=== PATIENT | male | born 1980 | race Caucasian/White ===

== ENCOUNTER 2018-10-30 11:03 | Inpatient (IN) | payer OTHER ==
[~2018-10-30] VITALS: Ht 185.4 cm; Wt 91.9 kg
[~2018-10-30 11:03] MED LIST: ATEN25 PO; Budeprion Xl300 MG PO; Klonopin1 MG PO; OXYC1TAB11 PO; PARO20 PO; WELLBUTRIN
[2018-10-30] MEDS ORDERED: METO25 PO (11:39)
[2018-10-30 11:49] LABS: BASOPHILS ABSOLUTE AUTO 0.02 K/mm3 (0.00-0.23); BASOPHILS PERCENT AUTO 0 % (0-2); EOSINOPHILS PERCENT AUTO 0 % (0-6); Hematocrit 50.6 % (37.0-53.0); Hemoglobin 18.7 g/dL (13.5-17.5); IMMATURE GRAN ABSOLUTE AUTO 0.03 K/mm3 (0.00-0.10); IMMATURE GRAN PERCENT AUTO 0 % (0-1); LYMPHOCYTES ABSOLUTE AUTO 0.97 K/mm3 (0.84-5.20); LYMPHOCYTES PERCENT AUTO 11 % (21-46); MONOCYTES ABSOLUTE AUTO 0.56 K/mm3 (0.16-1.47); MONOCYTES PERCENT AUTO 7 % (4-13); Mean Corpuscular HGB 32.9 pg (26.0-34.0); Mean Corpuscular Volume 89 fL (80-100); NEUTROPHILS PERCENT AUTO 81 % (41-73); Platelet Count 241 K/mm3 (150-400); RDW Coefficient Variation 14.3 % (11.7-14.2); RDW Standard Deviation 47.4 fL (35.1-46.3); Red Blood Cell Count 5.68 M/mm3 (4.30-5.90); White Blood Cell Count 8.48 K/mm3 (4.00-11.30)
[2018-10-30 12:01] LABS: Alanine Aminotransfer (ALT/SGP 111 U/L (12-78); Albumin, Blood 4.4 g/dL (3.4-5.0); Albumin/Globulin Ratio 1.2 (0.8-1.8); Alk Phos 91 U/L (50-136); Anion Gap 22 mmol/L (6-16); Aspartate Aminotrans (AST/SGOT 109 U/L (12-37); Bilirubin, Total 1.2 mg/dL (0.1-1.0); Blood Urea Nitrogen 8 mg/dL (8-24); Bun/Creatinine Ratio 9.4 (12.0-20.0); CO2, Blood 29 mmol/L (21-32); Calcium, Blood 10.1 mg/dL (8.5-10.1); Chloride, Blood 79 mmol/L (98-108); Creatinine, Blood 0.85 mg/dL (0.60-1.20); Globulin, Blood 3.6 g/dL (2.2-4.0); Glomerular Filtration Rate >60 (60-); Glucose, Blood 130 mg/dL (70-99); Potassium, Blood 2.8 mmol/L (3.5-5.5); Sodium, Blood 130 mmol/L (136-145); Troponin I <0.015 ng/mL (0.000-0.040)
[2018-10-30] MEDS ORDERED: TRAZ100 PO (12:55)
[2018-10-30] MEDS ORDERED: HYDHCL25 PO (12:56)
[2018-10-30] MEDS ORDERED: LAMICTAL XR200 MG PO (12:59)
--- NOTE | 2018-10-30 15:56 | NUR ---
ADMIT: PT ADMITTED TO ICU 5. PT ALERT AND ORIENTED, TREMULOUS. PT GAZING AROUND ROOM LIKE HE IS SEEING THINGS BUT HE DENIES HAVING ANY HALLUCINATIONS. PT NAUSEATED AND RETCHED TWICE. SPOKE WITH DR. RIOS ABOUT ANTIEMETIC BUT PT HAD PROLONGED QT IN ED SO RISK IS TOO GREAT. HELD PT'S LIBRIUM D/T NAUSEA AND GAVE ATIVAN INSTEAD. PT STATED SOME IMPROVEMENT FROM ATIVAN. CONTINUE TO MONITOR. PT'S MOTHER AND FATHER AT THE BEDSIDE.
--- NOTE | 2018-10-30 17:33 | NUR ---
SHIFT SUMMARY: PT HAS BEEN RESTING IN BED SINCE ADMIT. HE DANGLED AT THE BEDSIDE TO VOID ONCE. GLORIA WAS 13 UPON ADMIT AND RECEIVED ATIVAN, WHICH HAS HELPED WITH HIS SYMPTOMS. NO MORE RETCHING SINCE HE WAS FIRST ADMITTED AND HE WAS ABLE TO EAT SOME OFF OF HIS DINNER TRAY. HE DENIES ANY CURRENT CHEST PAIN. PT'S MOTHER HAS BEEN AT THE BEDSIDE SINCE ADMIT. SEIZURE PADS ON THE BED. CONTINUING TO MONITOR.
[2018-10-30 18:17] LABS: BASOPHILS ABSOLUTE AUTO 0.04 K/mm3 (0.00-0.23); BASOPHILS PERCENT AUTO 0 % (0-2); EOSINOPHILS PERCENT AUTO 0 % (0-6); Hematocrit 43.6 % (37.0-53.0); Hemoglobin 15.6 g/dL (13.5-17.5); IMMATURE GRAN ABSOLUTE AUTO 0.05 K/mm3 (0.00-0.10); IMMATURE GRAN PERCENT AUTO 0 % (0-1); LYMPHOCYTES ABSOLUTE AUTO 1.12 K/mm3 (0.84-5.20); LYMPHOCYTES PERCENT AUTO 8 % (21-46); MONOCYTES ABSOLUTE AUTO 0.84 K/mm3 (0.16-1.47); MONOCYTES PERCENT AUTO 6 % (4-13); Mean Corpuscular HGB 32.7 pg (26.0-34.0); Mean Corpuscular HGB Conc 35.8 g/dL (31.5-36.5); Mean Corpuscular Volume 91 fL (80-100); Mean Platelet Volume 9.7 fL (9.1-12.4); NEUTROPHILS ABSOLUTE AUTO 12.51 K/mm3 (1.96-9.15); NEUTROPHILS PERCENT AUTO 86 % (41-73); Platelet Count 191 K/mm3 (150-400); RDW Coefficient Variation 14.7 % (11.7-14.2); RDW Standard Deviation 49.5 fL (35.1-46.3); Red Blood Cell Count 4.77 M/mm3 (4.30-5.90); White Blood Cell Count 14.56 K/mm3 (4.00-11.30)
--- NOTE | 2018-10-30 20:28 | NUR ---
NIGHTSHIFT ASSUMED CARE OF PT APPROX. 1900. PT A&O X4. ASSESSMENT COMPLETED. VITAL SIGNS STABLE. HEART RHYTHM SINUS TACHYCARDIA IN 100'S AT THIS TIME. PT REPORTS FEELING "BETTER THAN BEFORE". BUT DOES REPORT THAT HIS HEAD FEELS SLIGHTLY "WEIRD, MURIEL DIZZY LIKE". TREMORS OF EXTREMITIES NOTED. CIWA SCORE 10 AT THIS TIME. PT DENIES N/V OR PAIN. BED IN LOW POSITION, CALL LIGHT IN REACH AND PT DENIES ANY NEEDS AT THIS TIME.
[2018-10-31 03:39] LABS: Alanine Aminotransfer (ALT/SGP 84 U/L (12-78); Albumin, Blood 3.6 g/dL (3.4-5.0); Albumin/Globulin Ratio 1.2 (0.8-1.8); Alk Phos 76 U/L (50-136); Aspartate Aminotrans (AST/SGOT 67 U/L (12-37); Bilirubin, Direct 0.5 mg/dL (0.0-0.3); Bilirubin, Indirect 0.9 mg/dL (0.1-0.7); Bilirubin, Total 1.4 mg/dL (0.1-1.0); Blood Urea Nitrogen 7 mg/dL (8-24); CO2, Blood 36 mmol/L (21-32); Calcium, Blood 8.9 mg/dL (8.5-10.1); Chloride, Blood 90 mmol/L (98-108); Creatinine, Blood 0.87 mg/dL (0.60-1.20); Glomerular Filtration Rate >60 (60-); Glucose, Blood 98 mg/dL (70-99); Magnesium, Blood 2.3 mg/dL (1.6-2.4); Phosphorus, Blood 4.4 mg/dL (2.5-4.9); Potassium, Blood 3.1 mmol/L (3.5-5.5); Total Protein, Blood 6.6 g/dL (6.4-8.2)
[2018-10-31 03:42] LABS: Anion Gap 8 mmol/L (6-16); Sodium, Blood 134 mmol/L (136-145)
--- NOTE | 2018-10-31 05:38 | NUR ---
SHIFT SUMMARY PT PLEASANT, COOPERATIVE AND USES CALL LIGHT APPROPRIATELY. PT REMAINS A&O X4. ALTHOUGH, PT TOOK A MINUTE TO ORIENT AFTER BEING AWOKEN FROM SLEEPING. BUT WAS ABLE TO ORIENT SELF EACH TIME. CIWA SCORE RANGED FROM 8-10. PRN MEDICATIONS GIVEN PER EMAR. PT WAS ABLE TO REST MOST OF SHIFT. MADE USE OF URINAL NEEDED. PT DENIED HALLUCINATIONS, N/V THROUGHOUT SHIFT. PT FOLLOWS DIRECTIONS AND MAINTAINED GOOD ATTENTION. ALL ASSESSMENT FINDINGS REMAIN UNCHANGED. EKG COMPLETED THIS MORNING. BED IN LOW POSITION, CALL LIGHT IN REACH AND PT DENIES ANY NEEDS. WILL CONTINUE TO MONITOR UNTIL HANDOFF TO DAYSHIFT RN.
--- NOTE | 2018-10-31 07:03 | NUR ---
ASSUMED CARE OF PT. PT IS ALERT AND ORIENTED. COMPLAINTS OF EPIGASTRIC PAIN 4/10 WITH SLIGHT NAUSEA CIWA SCORE IS 10.
--- NOTE | 2018-10-31 09:57 | NUR ---
Pt has stated that he's starting to get more and more anxious. He has expressed that he has been depressed for quite sometime but no suicidal thoughts. He has stated he wanted to be able to "do something." He stated that he has some type of social fear. He has stated that he has taken clonazepam in the past to help with his anxiety but this was stopped by his psychiatrist since he was also drinking alcohol. He stated that the medication was stopped "cold turkey" He also stated that since he had taken clonazepam he was able to go to work and has more of a drive to do any kind of activity.
[2018-10-31 13:39] LABS: BASOPHILS ABSOLUTE AUTO 0.03 K/mm3 (0.00-0.23); BASOPHILS PERCENT AUTO 1 % (0-2); EOSINOPHILS ABSOLUTE AUTO 0.01 K/mm3 (0.00-0.68); EOSINOPHILS PERCENT AUTO 0 % (0-6); Hemoglobin 15.1 g/dL (13.5-17.5); IMMATURE GRAN ABSOLUTE AUTO 0.03 K/mm3 (0.00-0.10); IMMATURE GRAN PERCENT AUTO 1 % (0-1); LYMPHOCYTES ABSOLUTE AUTO 1.13 K/mm3 (0.84-5.20); LYMPHOCYTES PERCENT AUTO 18 % (21-46); MONOCYTES ABSOLUTE AUTO 0.44 K/mm3 (0.16-1.47); MONOCYTES PERCENT AUTO 7 % (4-13); Mean Corpuscular HGB 32.7 pg (26.0-34.0); Mean Corpuscular HGB Conc 34.3 g/dL (31.5-36.5); Mean Platelet Volume 10.1 fL (9.1-12.4); NEUTROPHILS ABSOLUTE AUTO 4.67 K/mm3 (1.96-9.15); NEUTROPHILS PERCENT AUTO 74 % (41-73); Platelet Count 155 K/mm3 (150-400); RDW Coefficient Variation 15.1 % (11.7-14.2); RDW Standard Deviation 53.3 fL (35.1-46.3); Red Blood Cell Count 4.62 M/mm3 (4.30-5.90); White Blood Cell Count 6.31 K/mm3 (4.00-11.30)
[2018-10-31 13:42] LABS: Mean Corpuscular Volume 95 fL (80-100)
--- NOTE | 2018-10-31 19:30 | NUR ---
SHIFT SUMMARY: PT IS ALERT AND ORIENTED. CIWA 10-14. PT IS GETTING ATIVAN AND LIBRIUM ALTERNATELY.
--- NOTE | 2018-10-31 22:52 | NUR ---
ASSUMPTION OF CARE: Assumed care of pt at 1900. At 1900 pt lying in bed watching television. VSS, denies any needs at this time. Call light within reach, educated pt on use of call light. At approx 2030 pt sts feeling anxious, ativan PRN provided. Upon assessment at approx 2100 pt alert and orientated, pt attempting to get out of bed to take medications brought from home. Informed pt on the process of home medication administration and the need to send meds to pharmacy for verification. Pt became anxious and sts he just wants to go home. Discussed with pt concerns of leaving and why pt wanted to go home. Pt up to chair, sts that maybe getting out of bed will help. Pt starts crying, sts he was at one time restrained to bed. Informed pt that restraints are only used in cases where safety is a major concern and they are not indicated at this time. Pt becomes agreeable to taking medications to help with ETOH withdrawal and anxiety, gets back into bed. Peripheral IV x2 patent and intact.
--- NOTE | 2018-11-01 01:38 | NUR ---
OUT OF BED/CALL LIGHT USE Pt out of bed to use BSC several times this shift, not using call light. Pt re-educated energy conservation technician light usage for assistance when out of bed. Pt has steady gait and is alert and oriented.
[2018-11-01 06:22] LABS: Anion Gap 8 mmol/L (6-16); Blood Urea Nitrogen 8 mg/dL (8-24); Bun/Creatinine Ratio 9.8 (12.0-20.0); CO2, Blood 31 mmol/L (21-32); Calcium, Blood 8.6 mg/dL (8.5-10.1); Chloride, Blood 98 mmol/L (98-108); Creatinine, Blood 0.81 mg/dL (0.60-1.20); Glomerular Filtration Rate >60 (60-); Glucose, Blood 102 mg/dL (70-99); Magnesium, Blood 2.5 mg/dL (1.6-2.4); Phosphorus, Blood 2.2 mg/dL (2.5-4.9); Potassium, Blood 2.8 mmol/L (3.5-5.5); Sodium, Blood 137 mmol/L (136-145)
--- NOTE | 2018-11-01 06:35 | NUR ---
SHIFT SUMMARY: Pt slept very little throughout night, remains alert and oriented, remains calm and cooperative with staff but slightly agitated at times and wanting to leave facility/leave AMA. Nursing staff able to redirect pt, PRN ativan and Librium given with good effect noted. Continues to get out of bed without assistance, sometimes uses call light and makes needs known. VSS. Voiding using urinal, tolerating PO intake.
--- NOTE | 2018-11-01 11:15 | NUR ---
0700-ASSUMED CARE OF PT. PT IS ALERT AND ORIENTED. PT IS SLIGHTLY ANXIOUS AT THIS TIME. TRYING TO GET OUT OF BED WITHOUT ANY HELP AND NOT USING THE CALL LIGHT DESPITE BEING TOLD TO USE IT EVERY TIME HE FEELS OF GOING TO THE BATHROOM OR WANTS TO GET OUT OF BED. 0800-SEEN BY DR. RIOS AT THIS TIME. SPOKE TO DR. VENEGAS REGARDING PSYCH CONSULT. 0930-PT PULLED HIS IV. REMINDED PT AGAIN TO CALL AND USE HIS CALL LIGHT WHEN NEEDING SOMETHING.
--- NOTE | 2018-11-01 13:16 | NUR ---
1000-PT HAS EXPRESSED AGAIN HE WANTED TO GO HOME. REMINDED HIM THAT IF HE'S GOING HOME HE WILL GO HOME AGAINST MEDICAL ADVICE. 1124-CIWA SCORE 10. PT HAS BEEN PULLING HIS IV, TAKING HIS MONITOR LEADS OFF. STATING HE WANTS TO GO HOME. 1225-PT MEDICATED AGAIN WITH ATIVAN FOR ETOH WITHDRAWAL. 1309-PT HAS PULLED HIS IV THE 3RD TIME. PULLED HIS LEADS AND WAS DRESSED UP READY TO GO HOME. HE HAS STATED HIS PARENTS ARE PICKING HIM AND "WE HAVE A PLAN." TALKED TO PATIENT ABOUT THE RISKS OF LEAVING AMA. PT IS INSISTENT OF LEAVING AMA. DR. RIOS WAS NOTIFIED PT LEAVING AMA. PT BEING IMPATIENT AND IMPULSIVE PT LEFT AT THIS TIME. TALKED TO PT'S MOTHER OF PT LEAVING AMA.
== END 2018-11-01 13:05 | disposition left against medical advice (07) | DRG 894 ==
LOC: ER 11:03 → ICUW 13:06 → ICUE 14:43
PROVIDERS: Emergency Medicine; ADMIT Internal Medicine
DX: F10.239 Alcohol dependence with withdrawal, unspecified (principal); E87.1 Hypo-osmolality and hyponatremia; E87.6 Hypokalemia; F41.9 Anxiety disorder, unspecified; R94.31 Abnormal electrocardiogram [ECG] [EKG]
CPT/HCPCS: 36415; 71045; 80048; 80053; 80076; 83690; 83735; 84100; 84132; 84484; 85025; 93005; 93010; 96361; 96365; 96366; 96375; 99285-25; C9113; G0480; J1650; J2060; J3411; J3475; J3480; J7040; J7042; J7060; J7120

== ENCOUNTER 2018-12-03 20:02 | Inpatient (IN) | payer OTHER ==
[~2018-12-03] VITALS: Ht 185.4 cm; Wt 85.7 kg
[~2018-12-03 20:02] MED LIST changes: +HYDHCL25 PO; +LAMICTAL XR200 MG PO; +METO25 PO; +TRAZ100 PO
[2018-12-03 20:28] LABS: BASOPHILS ABSOLUTE AUTO 0.09 K/mm3 (0.00-0.23); BASOPHILS PERCENT AUTO 1 % (0-2); EOSINOPHILS PERCENT AUTO 0 % (0-6); Hematocrit 48.6 % (37.0-53.0); Hemoglobin 17.2 g/dL (13.5-17.5); IMMATURE GRAN ABSOLUTE AUTO 0.03 K/mm3 (0.00-0.10); IMMATURE GRAN PERCENT AUTO 0 % (0-1); LYMPHOCYTES ABSOLUTE AUTO 0.76 K/mm3 (0.84-5.20); LYMPHOCYTES PERCENT AUTO 6 % (21-46); MONOCYTES ABSOLUTE AUTO 0.83 K/mm3 (0.16-1.47); MONOCYTES PERCENT AUTO 7 % (4-13); Mean Corpuscular HGB 34.5 pg (26.0-34.0); Mean Corpuscular HGB Conc 35.4 g/dL (31.5-36.5); Mean Corpuscular Volume 97 fL (80-100); Mean Platelet Volume 9.5 fL (9.1-12.4); NEUTROPHILS ABSOLUTE AUTO 10.59 K/mm3 (1.96-9.15); NEUTROPHILS PERCENT AUTO 86 % (41-73); Platelet Count 220 K/mm3 (150-400); RDW Coefficient Variation 13.9 % (11.7-14.2); RDW Standard Deviation 50.6 fL (35.1-46.3); Red Blood Cell Count 4.99 M/mm3 (4.30-5.90)
[2018-12-03] MEDS ORDERED: TRAZ100 PO (21:12)
[2018-12-03] MEDS ORDERED: HYDHCL25 PO (21:13)
[2018-12-03 21:14] LABS: Ethanol (Alcohol), Blood, Med <3 mg/dL; Troponin I <0.015 ng/mL (0.000-0.040)
[2018-12-03 21:16] LABS: Alanine Aminotransfer (ALT/SGP 73 U/L (12-78); Albumin, Blood 4.3 g/dL (3.4-5.0); Albumin/Globulin Ratio 1.4 (0.8-1.8); Alk Phos 79 U/L (50-136); Anion Gap 13 mmol/L (6-16); Aspartate Aminotrans (AST/SGOT 98 U/L (12-37); Bilirubin, Total 1.5 mg/dL (0.1-1.0); Blood Urea Nitrogen 11 mg/dL (8-24); Bun/Creatinine Ratio 15.4 (12.0-20.0); CO2, Blood 25 mmol/L (21-32); Calcium, Blood 8.8 mg/dL (8.5-10.1); Chloride, Blood 95 mmol/L (98-108); Creatinine, Blood 0.72 mg/dL (0.60-1.20); Glomerular Filtration Rate >60 (60-); Glucose, Blood 81 mg/dL (70-99); Potassium, Blood 3.6 mmol/L (3.5-5.5); Sodium, Blood 133 mmol/L (136-145); Total Protein, Blood 7.3 g/dL (6.4-8.2)
--- NOTE | 2018-12-03 22:25 | NUR ---
PT ARRIVES TO ROOM ICU 2 VIA [facility] FROM ER. HE IS NOTED DROWSY BUT AWAKE AND ABLE TO STATE THAT HE IS IN [facility] FOR ALCOHOL WITHDRAWAL BUT THAT HE HAD CALLED FOR AN AMBULANCE FOR CHEST PAIN AND SHORTNESS OF BREATH. HE IS UNABLE TO STATE THE DATE BUT PROVIDES NOVEMBER THE MONTH AND 2018 THE YEAR, HE STATES THAT December IS IN 1 WEEK. HE IS ABLE TO TRANSFER TO THE BED WITH STANDBY ASSIST FOR LINE MANAGEMENT, ADMITS TO FEELING SOMEWHAT DIZZY WITH DANGLING HOWEVER DECLINES TO BE TRANSFERRED FROM [place] TO BED BY STAFF. HE ADMITS TO CURRENT NAUSEA, AND PAIN TO RIGHT KIDNEY THAT HE BELIEVES IS RELATED TO DEHYDRATION AND RATES 3/10, DENIES CP/PRESSURE, DENIES SOB/DYSPNEA AT THIS TIME, DENIES ITCHING OR TINGLING, DENIES HALLUCINATIONS AT THIS TIME. HE DENIES LIGHT OR SOUND SENSITIVITY. SOME SWEAT NOTED TO FOREHEAD. HRR, SINUS TACH ON MONITOR, RATE TO 130S, HYPERTENSIVE AT THIS TIME, PULSES FULL X 4 EXTREMITIES, BRISK CAP REFILL, NO EDEMA NOTED. LUNGS CLEAR THROUGHOUT, MAINTAINING SATS, NO INCREASED WORK OF BREATHING IS NOTED, RATE WNL. NORMOACTIVE BOWEL TONES, ABD SOFT, NO GRIMACING OR GUARDING WITH PALPATION. SCATTERED BRUISING IS NOTED BILAT SHINS, PT ADMITS TO FALLING AT HOME RECENTLY. HE HAS A MARKED TREMOR WHILE AT REST. WILL ADMIN ATIVAN AND LIBRIUM FOR ELEVATED CIWA SCORES, WILL MONITOR ORIENTATION AND CIWA SCORE, MEDICATE PER ORDERS.
[2018-12-04 04:00] LABS: Alanine Aminotransfer (ALT/SGP 58 U/L (12-78); Albumin, Blood 3.4 g/dL (3.4-5.0); Albumin/Globulin Ratio 1.2 (0.8-1.8); Alk Phos 70 U/L (50-136); Anion Gap 9 mmol/L (6-16); Aspartate Aminotrans (AST/SGOT 69 U/L (12-37); Bilirubin, Total 1.5 mg/dL (0.1-1.0); Blood Urea Nitrogen 7 mg/dL (8-24); Bun/Creatinine Ratio 10.4 (12.0-20.0); CO2, Blood 29 mmol/L (21-32); Chloride, Blood 102 mmol/L (98-108); Creatinine, Blood 0.67 mg/dL (0.60-1.20); Globulin, Blood 2.9 g/dL (2.2-4.0); Glomerular Filtration Rate >60 (60-); Glucose, Blood 87 mg/dL (70-99); Potassium, Blood 3.1 mmol/L (3.5-5.5); Sodium, Blood 140 mmol/L (136-145); Total Protein, Blood 6.3 g/dL (6.4-8.2)
--- NOTE | 2018-12-04 06:40 | NUR ---
PT RESTS QUIETLY AFTER ADMISSION THIS SHIFT. NAUSEA IMPROVES WITH ATIVAN ADMINISTRATION ALTHOUGH DOES NOT COMPLETELY RESOLVE. PT TREMORS IMPROVE WITH ATIVAN AND LIBRIUM, CIWA SCORES RANGE FROM 7-18 SINCE ADMISSION. HE CONTINUES TO BE ABLE TO STATE THAT HE IS IN [facility], IN 2019 AND IS AWARE OF UPCOMING HOLIDAY HOWEVER CANNOT STATE EXACT DATE. PRESSURES AND HEART RATE IMPROVED FOLLOWING ATIVAN 2 MG IV X 2 DOSES AND LIBRIUM 50 MG AND 25 MG DOSES. WILL CONTINUE TO MONITOR AND REPORT TO ONCOMING RN
--- NOTE | 2018-12-04 07:40 | NUR ---
ASSUMED CARE: REPORT RECEIVED FROM MESERET Bright RN. ASSUMED CARE OF THIS PT AT APPROX 0700. ON ASSESSMENT, THE PT IS RESTING QUIETLY. HE AWAKENS EASILY TO VERBAL STIMULUS & IS FOLLOWING DIRECTION WELL AT THIS TIME. CIWA CHARTED. HIS MOTHER IS AT BEDSIDE & SUPPORTIVE W/ CARE MEASURES. THE PT HAS NO C/O PAIN AT THIS TIME. WOLFGANG, TACK WELDER, AT BEDSIDE CURRENTLY TO COMPLETE ECHOCARDIOGRAM ORDERED. WILL CONTINUE TO MONITOR & UPDATE NEEDED.
--- NOTE | 2018-12-04 09:44 | NUR ---
echocardiogram completed
--- NOTE | 2018-12-04 19:03 | NUR ---
SHIFT SUMMARY: NO ACUTE CHANGES THIS SHIFT. PT A&Ox4, UNSURE OF EXACT DATE. CIWA HAS RANGED FROM 11-17 THIS SHIFT, MEDS PER EMAR FOR ETOH W/D. FAMILY HAS BEEN ENCOURAGED TO KEEP CONVERSATION SIMPLE PT BECOMES STRESSED/ANXIOUS EASILY. LS ARE CLEAR T/O, PT ON RA W/ O2 SATS > 92%. MONITOR SHOWS NSR W/ HR 80-100, HTN AT TIMES OF INCREASED ANXIETY, MEDS FOR ANXIETY RESOLVE THIS. BTx4, PT STS IMPROVEMENT TO INTERMITTENT NAUSEA. VOIDING W/O DIFFICULTY USING URINAL, URINE IS DARK & PO FLUIDS ENCOURAGED. SKIN OVERALL CDI. WILL CONTINUE TO MONITOR & REPORT OFF TO ONCOMING RN.
--- NOTE | 2018-12-04 20:00 | NUR ---
ASSUMED CARE OF PT AT 1915. REPORT RECEIVED. PT PRESENTS IN BED. SLOW VERBAL RESPONSES. BECOMES UPSET DURING ASSESSMENT SECONDARY TO BEING ASKED NOT TO SPEAK WHILE IN AUSCULTATION OF LUNGS AND HEART SOUNDS. 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 PT THREATENS THAT HE IS GOING TO LEAVE "AMA" HE DID THE PREVIOUS TIMES. ALLOWED PT TO EXPRESS HIS FRUSTRATIONS, AND CONCERNS THAT ARE LEADING TO HIM WANTING TO GO AMA. PT VOICES HE IS NOT SURE WHY HIS NORMAL HOME MEDICATIONS NEVER GOT REORDERED. INSTRCUTED PT THAT AFTER REVIEWING CHART AND MD NOTES THAT A BETTER EXPLANATION WOULD BE POSSIBLE FOR HIM. ALSO THAT AFTERWARDS, IF NEED BE, A CALL TO PROVIDER COULD BE MADE OR WOULD SPEAK WITH MORNING HOSPITALIST TEAM. THIS DID SATISFY PT. WILL REVIEW CHART AND PLAN OF CARE FOR THIS PT.
--- NOTE | 2018-12-04 21:37 | NUR ---
SPOKE WITH PATIENT REGARDING LEAVING AMA PATIENT VERY CLEAR ON REASONING FOR LEAVING AMA AND AWARE OF NOT BEING ABLE TO RECEIVE RX FOR ANY MEDICATIONS TO ASSIST WITH DT'S FROM ALCOHOL WITHDRAW. PATIENT HAS ARRANGED RIDE HOME. PATIENT ENCOURAGED TO FIND SOME PROFESSIONAL HELP TO DISCUSS HIS PROBLEMS AND FEARS.
--- NOTE | 2018-12-04 21:45 | NUR ---
PT MAKES A PHONE CALL TO SOMEONE AND DISCUSSED THAT HE WAS GOING TO "CHECK HIMSELF OUT OF THE HOSPITAL" HE THEN PROCEDES TO PULL OUT HIS IV AND STATES HE IS GOING TO GO HOME. PT ABLE TO EXPRESS APPROPRIATELY HIS RATIONALE FOR LEAVING AND DEMONSTRATES THAT HE HAS BEEN PLANNING TO DO THIS THIS EVENING. [facility] WITH NO SUCCESS IN SWAYING HIS DECISION. PT STATES HE HAS ARRANGED FOR A RIDE TO PICK HIM UP OUTSIDE OF THE HOSPITAL. PT LEAVES UNIT AFTER SECOND IV REMOVED BY THIS RN. TIME OF DEPARTURE WAS 2143.
== END 2018-12-04 21:44 | disposition left against medical advice (07) | DRG 894 ==
LOC: ER 20:02 → ICUE 21:34 → ICUW 21:34 → ICUE 22:25
PROVIDERS: Emergency Medicine; ADMIT Hospitalist
DX: F10.231 Alcohol dependence with withdrawal delirium (principal); E87.1 Hypo-osmolality and hyponatremia; F41.8 Other specified anxiety disorders; I10 Essential (primary) hypertension; F17.210 Nicotine dependence, cigarettes, uncomplicated; E83.42 Hypomagnesemia; E87.6 Hypokalemia
CPT/HCPCS: 36415; 71045; 80053; 83735; 84100; 84443; 84484; 85025; 93005; 93010; 93306; 96365; 96375; 99285-25; C9113; G0480; J1650; J2060; J2405; J3411; J3475; J3480; J7030; J7042

== ENCOUNTER 2019-01-06 11:32 | Observation (INO) | payer OTHER ==
[~2019-01-06] VITALS: Ht 182.9 cm; Wt 99.8 kg
[2019-01-06 13:10] LABS: BASOPHILS ABSOLUTE AUTO 0.08 K/mm3 (0.00-0.23); BASOPHILS PERCENT AUTO 1 % (0-2); EOSINOPHILS ABSOLUTE AUTO 0.04 K/mm3 (0.00-0.68); EOSINOPHILS PERCENT AUTO 1 % (0-6); Hematocrit 48.7 % (37.0-53.0); Hemoglobin 16.4 g/dL (13.5-17.5); IMMATURE GRAN ABSOLUTE AUTO 0.02 K/mm3 (0.00-0.10); IMMATURE GRAN PERCENT AUTO 0 % (0-1); LYMPHOCYTES ABSOLUTE AUTO 1.44 K/mm3 (0.84-5.20); LYMPHOCYTES PERCENT AUTO 25 % (21-46); MONOCYTES ABSOLUTE AUTO 0.81 K/mm3 (0.16-1.47); MONOCYTES PERCENT AUTO 14 % (4-13); Mean Corpuscular HGB Conc 33.7 g/dL (31.5-36.5); Mean Corpuscular Volume 101 fL (80-100); Mean Platelet Volume 9.9 fL (9.1-12.4); NEUTROPHILS ABSOLUTE AUTO 3.44 K/mm3 (1.96-9.15); NEUTROPHILS PERCENT AUTO 59 % (41-73); Platelet Count 202 K/mm3 (150-400); RDW Coefficient Variation 13.9 % (11.7-14.2); RDW Standard Deviation 52.3 fL (35.1-46.3); Red Blood Cell Count 4.83 M/mm3 (4.30-5.90); White Blood Cell Count 5.83 K/mm3 (4.00-11.30)
[2019-01-06 13:19] LABS: Source, Urine Voided
[2019-01-06 13:34] LABS: Salicylate <1.7 mg/dL (2.8-20.0)
[2019-01-06 13:43] LABS: Bilirubin, Urine Neg (Neg); Blood, Urine Neg (Neg); Glucose Qualitative, Urine Neg (Neg); Ketones, Urine Neg (Neg); Leukocyte Esterase, Urine Neg (Neg); Nitrite, Urine Neg (Neg); Protein, Urine Neg (Neg); Urobilinogen, Urine NORM (Normal)
[2019-01-06 13:49] LABS: Appearance, Urine Clear (Clear); Color, Urine Pale Yellow (P-Yellow)
[2019-01-06 13:57] LABS: Acetaminophen, Random <2.0 ug/mL (10.0-30.0); Alanine Aminotransfer (ALT/SGP 93 U/L (12-78); Albumin/Globulin Ratio 1.2 (0.8-1.8); Alk Phos 85 U/L (50-136); Anion Gap 13 mmol/L (6-16); Aspartate Aminotrans (AST/SGOT 118 U/L (12-37); Bilirubin, Total 0.5 mg/dL (0.1-1.0); Blood Urea Nitrogen 10 mg/dL (8-24); Bun/Creatinine Ratio 12.8 (12.0-20.0); CO2, Blood 21 mmol/L (21-32); Calcium, Blood 8.4 mg/dL (8.5-10.1); Chloride, Blood 107 mmol/L (98-108); Creatinine, Blood 0.78 mg/dL (0.60-1.20); Ethanol (Alcohol), Blood, Med 316 mg/dL; Globulin, Blood 3.4 g/dL (2.2-4.0); Glomerular Filtration Rate >60 (60-); Glucose, Blood 108 mg/dL (70-99); Sodium, Blood 141 mmol/L (136-145); Total Protein, Blood 7.4 g/dL (6.4-8.2)
[2019-01-06 13:59] LABS: U Amphetamine Screen Not Detected; U Barbituate Screen Not Detected; U Benzodiazapine Screen Not Detected; U Buprenorphine Screen Not Detected; U Cannabinoids Screen DETECTED; U Cocaine Screen Not Detected; U Methadone Screen Not Detected; U Methamphetamine Screen Not Detected; U Opiates Screen Not Detected; U Oxycodone Screen Not Detected; U Phencyclidine Screen Not Detected; U Propoxyphene Screen Not Detected
[2019-01-09 03:33] LABS: Alanine Aminotransfer (ALT/SGP 88 U/L (12-78); Albumin, Blood 3.7 g/dL (3.4-5.0); Albumin/Globulin Ratio 1.1 (0.8-1.8); Alk Phos 85 U/L (50-136); Anion Gap 9 mmol/L (6-16); Aspartate Aminotrans (AST/SGOT 86 U/L (12-37); Bilirubin, Total 0.6 mg/dL (0.1-1.0); Blood Urea Nitrogen 10 mg/dL (8-24); Bun/Creatinine Ratio 14.3 (12.0-20.0); CO2, Blood 26 mmol/L (21-32); Calcium, Blood 9.3 mg/dL (8.5-10.1); Chloride, Blood 106 mmol/L (98-108); Globulin, Blood 3.5 g/dL (2.2-4.0); Glomerular Filtration Rate >60 (60-); Glucose, Blood 102 mg/dL (70-99); Potassium, Blood 3.9 mmol/L (3.5-5.5); Sodium, Blood 141 mmol/L (136-145); Total Protein, Blood 7.2 g/dL (6.4-8.2)
== END 2019-01-11 08:59 | disposition home or self-care (01) ==
LOC: ER 11:32 → EOR 13:02
PROVIDERS: Emergency Medicine; ADMIT Emergency Medicine
DX: F10.14 Alcohol abuse with alcohol-induced mood disorder (principal); F32.9 Major depressive disorder, single episode, unspecified; F10.129 Alcohol abuse with intoxication, unspecified; F41.9 Anxiety disorder, unspecified; I10 Essential (primary) hypertension; F17.200 Nicotine dependence, unspecified, uncomplicated; Z79.899 Other long term (current) drug therapy
CPT/HCPCS: 36415; 71046; 80053; 81003; 84443; 85025; 96372; 99285-25; G0378; G0480; J1200; J1630; J2060; Q0163; Q3014

== ENCOUNTER 2019-01-30 19:19 | Emergency (ER) | payer OTHER ==
[~2019-01-30] VITALS: Ht 182.9 cm; Wt 90.7 kg
[2019-01-30 21:10] LABS: BASOPHILS ABSOLUTE AUTO 0.05 K/mm3 (0.00-0.23); BASOPHILS PERCENT AUTO 1 % (0-2); EOSINOPHILS ABSOLUTE AUTO 0.15 K/mm3 (0.00-0.68); EOSINOPHILS PERCENT AUTO 2 % (0-6); Hematocrit 46.5 % (37.0-53.0); Hemoglobin 15.8 g/dL (13.5-17.5); IMMATURE GRAN ABSOLUTE AUTO 0.03 K/mm3 (0.00-0.10); IMMATURE GRAN PERCENT AUTO 0 % (0-1); LYMPHOCYTES ABSOLUTE AUTO 1.29 K/mm3 (0.84-5.20); LYMPHOCYTES PERCENT AUTO 18 % (21-46); MONOCYTES ABSOLUTE AUTO 0.62 K/mm3 (0.16-1.47); MONOCYTES PERCENT AUTO 9 % (4-13); Mean Corpuscular Volume 100 fL (80-100); Mean Platelet Volume 9.5 fL (9.1-12.4); NEUTROPHILS ABSOLUTE AUTO 5.07 K/mm3 (1.96-9.15); NEUTROPHILS PERCENT AUTO 70 % (41-73); Platelet Count 301 K/mm3 (150-400); RDW Coefficient Variation 11.9 % (11.7-14.2); RDW Standard Deviation 44.3 fL (35.1-46.3); Red Blood Cell Count 4.65 M/mm3 (4.30-5.90); White Blood Cell Count 7.21 K/mm3 (4.00-11.30)
[2019-01-30 21:28] LABS: Alanine Aminotransfer (ALT/SGP 58 U/L (12-78); Albumin, Blood 3.7 g/dL (3.4-5.0); Albumin/Globulin Ratio 1.1 (0.8-1.8); Alk Phos 81 U/L (50-136); Anion Gap 6 mmol/L (6-16); Aspartate Aminotrans (AST/SGOT 40 U/L (12-37); Bilirubin, Total 0.3 mg/dL (0.1-1.0); Blood Urea Nitrogen 12 mg/dL (8-24); Bun/Creatinine Ratio 16.7 (12.0-20.0); CO2, Blood 24 mmol/L (21-32); Calcium, Blood 8.9 mg/dL (8.5-10.1); Chloride, Blood 109 mmol/L (98-108); Creatinine, Blood 0.72 mg/dL (0.60-1.20); Globulin, Blood 3.4 g/dL (2.2-4.0); Glomerular Filtration Rate >60 (60-); Glucose, Blood 88 mg/dL (70-99); Potassium, Blood 3.9 mmol/L (3.5-5.5); Sodium, Blood 139 mmol/L (136-145); Total Protein, Blood 7.1 g/dL (6.4-8.2)
[2019-01-30 21:40] LABS: Source, Urine Clean Catch
[2019-01-30 21:42] LABS: Bilirubin, Urine Neg (Neg); Blood, Urine Neg (Neg); Glucose Qualitative, Urine Neg (Neg); Ketones, Urine Neg (Neg); Leukocyte Esterase, Urine Neg (Neg); Nitrite, Urine Neg (Neg); Protein, Urine Neg (Neg); Urobilinogen, Urine NORM (Normal); pH, Urine 6.5 (5.0-8.0)
[2019-01-30 21:50] LABS: Appearance, Urine Clear (Clear); Color, Urine Yellow (P-Yellow)
[2019-01-30 21:55] LABS: U Amphetamine Screen Not Detected; U Barbituate Screen Not Detected; U Benzodiazapine Screen DETECTED; U Buprenorphine Screen Not Detected; U Cannabinoids Screen DETECTED; U Cocaine Screen Not Detected; U Methadone Screen Not Detected; U Methamphetamine Screen Not Detected; U Opiates Screen Not Detected; U Oxycodone Screen Not Detected; U Phencyclidine Screen Not Detected; U Propoxyphene Screen Not Detected
== END 2019-01-30 22:55 | disposition short-term general hospital (02) ==
LOC: ER 19:19
PROVIDERS: Emergency Medicine
DX: S72.001A Fracture of unspecified part of neck of right femur, initial encounter for closed fracture (principal); M25.462 Effusion, left knee; V00.131A Fall from skateboard, initial encounter; Z79.899 Other long term (current) drug therapy; F32.9 Major depressive disorder, single episode, unspecified; F41.9 Anxiety disorder, unspecified
CPT/HCPCS: 36415; 71045; 73502; 73562-RT; 80053; 81003; 85025; 96361; 96374; 96376; 99285-25; J1170; J7030

== ENCOUNTER → 2019-03-28 | Outpatient (CLI) | payer OTHER ==
[2019-03-28 16:55] LABS: BASOPHILS ABSOLUTE AUTO 0.07 K/mm3 (0.00-0.23); BASOPHILS PERCENT AUTO 1 % (0-2); EOSINOPHILS ABSOLUTE AUTO 0.01 K/mm3 (0.00-0.68); EOSINOPHILS PERCENT AUTO 0 % (0-6); Hematocrit 45.4 % (37.0-53.0); Hemoglobin 16.6 g/dL (13.5-17.5); IMMATURE GRAN ABSOLUTE AUTO 0.02 K/mm3 (0.00-0.10); IMMATURE GRAN PERCENT AUTO 0 % (0-1); LYMPHOCYTES ABSOLUTE AUTO 0.79 K/mm3 (0.84-5.20); LYMPHOCYTES PERCENT AUTO 9 % (21-46); MONOCYTES ABSOLUTE AUTO 0.62 K/mm3 (0.16-1.47); MONOCYTES PERCENT AUTO 7 % (4-13); Mean Corpuscular HGB 32.7 pg (26.0-34.0); Mean Corpuscular HGB Conc 36.6 g/dL (31.5-36.5); Mean Corpuscular Volume 89 fL (80-100); Mean Platelet Volume 10.1 fL (9.1-12.4); NEUTROPHILS ABSOLUTE AUTO 7.71 K/mm3 (1.96-9.15); NEUTROPHILS PERCENT AUTO 84 % (41-73); Platelet Count 227 K/mm3 (150-400); RDW Coefficient Variation 12.8 % (11.7-14.2); Red Blood Cell Count 5.08 M/mm3 (4.30-5.90); White Blood Cell Count 9.22 K/mm3 (4.00-11.30)
[2019-03-28 17:05] LABS: Alanine Aminotransfer (ALT/SGP 176 U/L (12-78); Albumin, Blood 4.2 g/dL (3.4-5.0); Albumin/Globulin Ratio 1.2 (0.8-1.8); Alk Phos 109 U/L (40-126); Anion Gap 22 mmol/L (6-16); Aspartate Aminotrans (AST/SGOT 277 U/L (12-37); Bilirubin, Total 1.4 mg/dL (0.1-1.0); Blood Urea Nitrogen 10 mg/dL (8-24); Bun/Creatinine Ratio 10.6 (12.0-20.0); Calcium, Blood 9.3 mg/dL (8.5-10.1); Chloride, Blood 91 mmol/L (98-108); Creatinine, Blood 0.94 mg/dL (0.60-1.20); Globulin, Blood 3.5 g/dL (2.2-4.0); Glomerular Filtration Rate >60 (60-); Glucose, Blood 106 mg/dL (70-99); Potassium, Blood 3.9 mmol/L (3.5-5.5); Sodium, Blood 132 mmol/L (136-145); Total Protein, Blood 7.7 g/dL (6.4-8.2)
[2019-03-28 17:13] LABS: CO2, Blood 19 mmol/L (21-32)
[2019-03-28 17:17] LABS: Troponin I <0.017 ng/mL (0.000-0.040)
== END | disposition home or self-care (01) ==
LOC: LAB EV 16:45 → LAB SHORT 16:45
PROVIDERS: Family Medicine
DX: R07.9 Chest pain, unspecified (principal)
CPT/HCPCS: 80053; 84484; 85025

== ENCOUNTER 2019-08-06 22:58 | Inpatient (IN) | payer OTHER ==
[~2019-08-06] VITALS: Ht 182.9 cm; Wt 97.3 kg
[2019-08-06 23:16] LABS: BASOPHILS ABSOLUTE AUTO 0.04 K/mm3 (0.00-0.23); BASOPHILS PERCENT AUTO 0 % (0-2); EOSINOPHILS ABSOLUTE AUTO 0.03 K/mm3 (0.00-0.68); EOSINOPHILS PERCENT AUTO 0 % (0-6); Hematocrit 49.9 % (37.0-53.0); Hemoglobin 17.3 g/dL (13.5-17.5); IMMATURE GRAN ABSOLUTE AUTO 0.13 K/mm3 (0.00-0.10); IMMATURE GRAN PERCENT AUTO 1 % (0-1); LYMPHOCYTES ABSOLUTE AUTO 1.11 K/mm3 (0.84-5.20); LYMPHOCYTES PERCENT AUTO 7 % (21-46); MONOCYTES ABSOLUTE AUTO 1.18 K/mm3 (0.16-1.47); MONOCYTES PERCENT AUTO 7 % (4-13); Mean Corpuscular HGB 32.5 pg (26.0-34.0); Mean Corpuscular HGB Conc 34.7 g/dL (31.5-36.5); Mean Corpuscular Volume 94 fL (80-100); Mean Platelet Volume 9.8 fL (9.1-12.4); NEUTROPHILS ABSOLUTE AUTO 14.53 K/mm3 (1.96-9.15); NEUTROPHILS PERCENT AUTO 85 % (41-73); Platelet Count 281 K/mm3 (150-400); RDW Coefficient Variation 13.2 % (11.7-14.2); RDW Standard Deviation 45.1 fL (35.1-46.3); Red Blood Cell Count 5.33 M/mm3 (4.30-5.90); White Blood Cell Count 17.02 K/mm3 (4.00-11.30)
[2019-08-06 23:33] LABS: Ethanol (Alcohol), Blood, Med 252 mg/dL; Salicylate 2.5 mg/dL (2.8-20.0)
[2019-08-06 23:34] LABS: Acetaminophen, Random <2.0 ug/mL (10.0-30.0); Alanine Aminotransfer (ALT/SGP 74 U/L (12-78); Albumin, Blood 4.5 g/dL (3.4-5.0); Albumin/Globulin Ratio 1.3 (0.8-1.8); Alk Phos 86 U/L (50-136); Anion Gap 41 mmol/L (6-16); Aspartate Aminotrans (AST/SGOT 61 U/L (12-37); Bilirubin, Total 0.5 mg/dL (0.1-1.0); Blood Urea Nitrogen 15 mg/dL (8-24); CO2, Blood 9 mmol/L (21-32); Calcium, Blood 8.4 mg/dL (8.5-10.1); Chloride, Blood 79 mmol/L (98-108); Creatinine, Blood 1.66 mg/dL (0.60-1.20); Globulin, Blood 3.4 g/dL (2.2-4.0); Glomerular Filtration Rate 50 (60-); Glucose, Blood 124 mg/dL (70-99); Potassium, Blood 3.4 mmol/L (3.5-5.5); Sodium, Blood 129 mmol/L (136-145); Total Protein, Blood 7.9 g/dL (6.4-8.2)
[2019-08-06 23:39] LABS: PCO2 Arterial 19 mmHg (35-45); PO2 Arterial 105 mmHg (80-100); pH Blood Arterial 7.24 (7.35-7.45)
[2019-08-07 01:22] LABS: Adenovirus Not Detected (NOT DETECT); Bordetella pertussis Not Detected (NOT DETECT); Chlamydophila pneumoniae Not Detected (NOT DETECT); Coronavirus 229E Not Detected (NOT DETECT); Coronavirus HKU1 Not Detected (NOT DETECT); Coronavirus NL63 Not Detected (NOT DETECT); Coronavirus OC43 Not Detected (NOT DETECT); Human Metapneumovirus Not Detected (NOT DETECT); Human Rhinovirus/Enterovirus Not Detected (NOT DETECT); Influenza A/2009-H1 Not Detected (NOT DETECT); Influenza A/H1 Not Detected (NOT DETECT); Influenza A/H3 Not Detected (NOT DETECT); Influenza B Not Detected (NOT DETECT); Mycoplasma pneumoniae Not Detected (NOT DETECT); Parainfluenza Virus 1 Not Detected (NOT DETECT); Parainfluenza Virus 2 Not Detected (NOT DETECT); Parainfluenza Virus 3 Not Detected (NOT DETECT); Parainfluenza Virus 4 Not Detected (NOT DETECT); Respiratory Syncytial Virus Not Detected (NOT DETECT)
[2019-08-07 01:23] LABS: Creatine Kinase MB 4.5 ng/mL (0.0-3.6); Creatine Kinase MB Index 1.3 (0.0-4.0)
--- NOTE | 2019-08-07 01:30 | NUR ---
ASSUMPTION OF CARE: PT UP TO ROOM FROM ED VIA BED. PT ALERT AND ORIENTED. ANSWERING QUESTIONS APPROPIATELY. PT'S MAIN COMPLAINT HAS BEEN THIRST AND HAS BEEN ASKING FOR WATER, MILK, JUICE. EXPLAINED TO PT HE IS NPO BUT OFFERED MOUTH SWABS. PT ON RA DURING TRANSPORT AND TRANSFER TO ICU BED. SPO2 >90%. HAS BIPAP ON STANDBY IF NEEDED. IN ST WITH HR IN THE 140S, SBP 150-170S. BT PRESENT. ABLE TO VOID ON OWN. 20 IN RFA AND LAC. BOTH PATENT AND CURRENTLY SALINE LOCKED. CURRENT CIWA 4. BED IN LOW POSITION, CALL LIGHT IN REACH, WILL CONTINUE TO MONITOR.
--- NOTE | 2019-08-07 03:47 | NUR ---
PT ON AND OFF BIPAP FOR COMFORT. HOWEVER PT SPO2 >90% ON RA. CURRENTLY RESTING COMFORTABLY BUT HAS 1 EPISODE OF ATTEMPTING TO GET OUT OF BED TO GET OWN WATER. EXPLAINED TO PT AGAIN THAT HE CAN NOT HAVE ANYTHING BY MOUTH AT THIS TIME. OFFERED MOUTH SWAB INSTEAD.
[2019-08-07 05:05] LABS: Hematocrit 49.6 % (37.0-53.0); Hemoglobin 16.1 g/dL (13.5-17.5); Mean Corpuscular HGB 31.8 pg (26.0-34.0); Mean Corpuscular HGB Conc 32.5 g/dL (31.5-36.5); Mean Platelet Volume 10.3 fL (9.1-12.4); Platelet Count 230 K/mm3 (150-400); RDW Coefficient Variation 13.5 % (11.7-14.2); RDW Standard Deviation 48.4 fL (35.1-46.3); Red Blood Cell Count 5.07 M/mm3 (4.30-5.90); White Blood Cell Count 16.66 K/mm3 (4.00-11.30)
[2019-08-07 05:10] LABS: Mean Corpuscular Volume 98 fL (80-100)
[2019-08-07 05:30] LABS: Anion Gap 42 mmol/L (6-16); Blood Urea Nitrogen 16 mg/dL (8-24); Bun/Creatinine Ratio 12.7 (12.0-20.0); CO2, Blood 5 mmol/L (21-32); Calcium, Blood 7.6 mg/dL (8.5-10.1); Chloride, Blood 83 mmol/L (98-108); Creatinine, Blood 1.26 mg/dL (0.60-1.20); Glomerular Filtration Rate >60 (60-); Glucose, Blood 121 mg/dL (70-99); Potassium, Blood 3.8 mmol/L (3.5-5.5); Sodium, Blood 130 mmol/L (136-145)
[2019-08-07 05:31] LABS: Alanine Aminotransfer (ALT/SGP 69 U/L (12-78); Albumin/Globulin Ratio 1.2 (0.8-1.8); Alk Phos 78 U/L (50-136); Anion Gap 43 mmol/L (6-16); Aspartate Aminotrans (AST/SGOT 59 U/L (12-37); Bilirubin, Total 0.5 mg/dL (0.1-1.0); Blood Urea Nitrogen 17 mg/dL (8-24); Bun/Creatinine Ratio 12.9 (12.0-20.0); CO2, Blood 5 mmol/L (21-32); Calcium, Blood 7.6 mg/dL (8.5-10.1); Chloride, Blood 83 mmol/L (98-108); Creatinine, Blood 1.32 mg/dL (0.60-1.20); Globulin, Blood 3.4 g/dL (2.2-4.0); Glomerular Filtration Rate >60 (60-); Glucose, Blood 124 mg/dL (70-99); Potassium, Blood 3.8 mmol/L (3.5-5.5); Sodium, Blood 131 mmol/L (136-145); Total Protein, Blood 7.4 g/dL (6.4-8.2)
--- NOTE | 2019-08-07 05:35 | NUR ---
PT CO2 AT 5. CALL PLACED TO SHERRY AND VM LEFT.
--- NOTE | 2019-08-07 05:54 | NUR ---
PT RESTING COMFORTABLY T/O NIGHT. HAS BEEN ON AND OFF BIPAP T/O NIGHT FOR PT COMFORT. VSS, PT REMAINS IN ST. LUNG SOUNDS CLEAR. OCC PRODUCTIVE COUGH. PT ABLE TO VOID ON OWN. URINE CLEAR YELLOW. 20G IV IN RFA ND LAC. LAC IV INFUSING WITH BICARB AT 125 ML/HR. RFA SL. WILL PASS REPORT ON TO NEXT SHIFT
[2019-08-07 06:07] LABS: Adenovirus Not Detected (NOT DETECT); Bordetella pertussis Not Detected (NOT DETECT); Chlamydophila pneumoniae Not Detected (NOT DETECT); Coronavirus 229E Not Detected (NOT DETECT); Coronavirus HKU1 Not Detected (NOT DETECT); Coronavirus NL63 Not Detected (NOT DETECT); Coronavirus OC43 Not Detected (NOT DETECT); Human Metapneumovirus Not Detected (NOT DETECT); Human Rhinovirus/Enterovirus Not Detected (NOT DETECT); Influenza A/2009-H1 Not Detected (NOT DETECT); Influenza A/H1 Not Detected (NOT DETECT); Influenza A/H3 Not Detected (NOT DETECT); Influenza B Not Detected (NOT DETECT); Mycoplasma pneumoniae Not Detected (NOT DETECT); Parainfluenza Virus 1 Not Detected (NOT DETECT); Parainfluenza Virus 2 Not Detected (NOT DETECT); Parainfluenza Virus 3 Not Detected (NOT DETECT); Parainfluenza Virus 4 Not Detected (NOT DETECT); Respiratory Syncytial Virus Not Detected (NOT DETECT)
[2019-08-07 06:33] LABS: PCO2 Arterial 19.9 mmHg (35-45); PO2 Arterial 76.1 mmHg (80-100); pH Blood Arterial 7.43 (7.35-7.45)
--- NOTE | 2019-08-07 07:30 | NUR ---
CARE OF PT ASSUMED BEDSIDE REPORT TAKEN AT 0715 THIS AM. PT SLEEPING IN BED WITH BIPAP ON. PT AROUSES TO VOICE. BP ELEVATED, HEART RATE 90-110, SINUS RHTHYM. SATS >93% BIPAP 12/5 21% FIO2.
[2019-08-07 11:46] LABS: Anion Gap 11 mmol/L (6-16); Blood Urea Nitrogen 16 mg/dL (8-24); Bun/Creatinine Ratio 16.6 (12.0-20.0); CO2, Blood 34 mmol/L (21-32); Calcium, Blood 7.4 mg/dL (8.5-10.1); Chloride, Blood 86 mmol/L (98-108); Creatinine, Blood 0.96 mg/dL (0.60-1.20); Glomerular Filtration Rate >60 (60-); Glucose, Blood 225 mg/dL (70-99); Potassium, Blood 3.4 mmol/L (3.5-5.5); Sodium, Blood 131 mmol/L (136-145)
--- NOTE | 2019-08-07 13:44 | NUR ---
PT ASSESSED AT 0745. PT ORIENTED, BUT RESTLESS, SOMEWHAT AGITATED WITH C/O SOB. STIDOR NOTED; RT NOTIFIED. COARSE T/O WITH VERY DIMINISHED SOUNDS TO RML,RLL. SATS STABLE. CIWA 16, STRONG TREMORS, PT PANICKING. PT WITH 100CC MUCUS/BILE EMESIS. PT MEDICATED W ZOFRAN. 02 PLACD AT 2L UNTIL NAUSEA CLEARED. ATIVAN GIVEN WITH GOOD EFFECT. DR CARIAS IN TO SEE PT AT 0830. CONSULT FOR CRITICAL CARE ORDERED. DR ESCOBEDO NOTIFIED AT 0900 WITH FULL UPDATE. STIDOR IMPROVED AFTER UDN TREATMENT. FLUIDS CHANGED TO D5 W 3AMPS BICARB AT 200CC/HR. PT KEPT NPO UNTIL 1200. ATIVAN GIVEN AT 1214 FOR ELEVATED CIWA' WITH GOOD EFFECT. PT CALM AND RELAXED. SLEEPIN ON AND OFF. PT REMAINS HTN; WILL MEDICATE PER EMAR. PT HAS STAYED OFF BIPAP. SATS >95% ON 2L VIA N/C. PT REMAINS COARSE WITH MILD STIDOR NOTED. PT'S MOTHER AT BEDSIDE.
--- NOTE | 2019-08-07 15:50 | NUR ---
PT SLEEPING ON AND OFF; APPEARS RELAXED, SKIN FLUSHED. AFEBRILE. SLIGHT STIDOR NOTED. SATS 97% ON 1L VIA N/C. HYDRALAZINE IV GIVEN FOR SBP >160.
[2019-08-07 17:38] LABS: Anion Gap 7 mmol/L (6-16); Blood Urea Nitrogen 12 mg/dL (8-24); Bun/Creatinine Ratio 14.6 (12.0-20.0); CO2, Blood 38 mmol/L (21-32); Calcium, Blood 7.6 mg/dL (8.5-10.1); Chloride, Blood 85 mmol/L (98-108); Creatinine, Blood 0.82 mg/dL (0.60-1.20); Glomerular Filtration Rate >60 (60-); Glucose, Blood 196 mg/dL (70-99); Potassium, Blood 2.8 mmol/L (3.5-5.5); Sodium, Blood 130 mmol/L (136-145)
--- NOTE | 2019-08-07 18:39 | NUR ---
DR ESCOBEDO AT BEDSIDE TO SEE PT. SEE NEW ORDERS. PT HAS DONE WELL T/O THE SHIFT; RESP DISTRESS HAS IMPROVED SIGNIFICANTLY. PT HAS NOT NEEDED BIPAP SINCE EARLY THIS AM. ATIVAN 2MG IVP GIVEN X3 FOR INCREASED CIWA WITH GOOD EFFECT. PT CALM AND SLEPT THROUGH MOST OF SHIFT. PT'S MOTHER AT BEDSIDE FOR MOST OF SHIFT WELL. IV FLUIDS TO BE DC'D. DIET TO BE STARTED TOLERATED. HYDRALAZINE GIVEN ONCE FOR SBP>160. PT SBA TO STAND AT BEDSIDE AND USE URINAL.
--- NOTE | 2019-08-07 19:47 | NUR ---
PT SODIUM 130, POTASSIUM 2.8. DR ESCOBEDO NOTIFIED. ORDERS ARE TO WAIT AND SEE WHAT 2100 LABS SHOW. WILL CONTINUE TO MONITOR
--- NOTE | 2019-08-07 20:00 | NUR ---
ASSUMPTION OF CARE: PT AWAKE AND ALERT. SBP IN THE 150S, HR IN THE 110S. LUNG SOUNDS ARE COARSE AND DIM IN BASES. STILL HAS A PRODUCTIVE COUGH. NO COMPLAINTS OF N&V AT THIS TIME. SPO2 >90% ON 1L NC. PT TOLERATED ICE CHIPS AND SIPS WELL. DIET CAN ADVANCE TOLERATED. 20G IN RFA AND 20G IN LAC. BOTH ARE PATENT. D5LR INFUSING AT 100MLS/HR. BED IN LOWEST POSITION AND CALL LIGHT IN REACH. WILL CONTINUE TO MONITOR
[2019-08-07 21:14] LABS: Albumin, Blood 3.6 g/dL (3.4-5.0); Anion Gap 5 mmol/L (6-16); Blood Urea Nitrogen 9 mg/dL (8-24); Bun/Creatinine Ratio 11.1 (12.0-20.0); CO2, Blood 39 mmol/L (21-32); Calcium, Blood 8.3 mg/dL (8.5-10.1); Chloride, Blood 89 mmol/L (98-108); Creatinine, Blood 0.81 mg/dL (0.60-1.20); Glomerular Filtration Rate >60 (60-); Glucose, Blood 160 mg/dL (70-99); Phosphorus, Blood 1.3 mg/dL (2.5-4.9); Potassium, Blood 2.7 mmol/L (3.5-5.5); Sodium, Blood 133 mmol/L (136-145)
--- NOTE | 2019-08-08 00:09 | NUR ---
CALL PLACED TO DR GREGG LEBLANC ELECTROLYTES. SODIUM 133, POTASSIUM 2.7. ORDER RECEIVED FOR 40MEQ POTASSIUM PO X 1.
--- NOTE | 2019-08-08 01:32 | NUR ---
pt c/o needing another breathing tx. RT called and gave breathing tx. Pt still complaining that his lungs feel "dry" and he still needs to "cough stuff up" but overall feel better since breathing tx.
[2019-08-08 03:29] LABS: Hematocrit 39.7 % (37.0-53.0); Hemoglobin 13.9 g/dL (13.5-17.5); Mean Corpuscular HGB 32.6 pg (26.0-34.0); Mean Platelet Volume 10.2 fL (9.1-12.4); Platelet Count 125 K/mm3 (150-400); RDW Coefficient Variation 12.9 % (11.7-14.2); Red Blood Cell Count 4.26 M/mm3 (4.30-5.90); White Blood Cell Count 12.13 K/mm3 (4.00-11.30)
[2019-08-08 03:30] LABS: Mean Corpuscular Volume 93 fL (80-100)
[2019-08-08 03:44] LABS: Albumin, Blood 3.2 g/dL (3.4-5.0); Anion Gap 6 mmol/L (6-16); Blood Urea Nitrogen 7 mg/dL (8-24); Bun/Creatinine Ratio 8.3 (12.0-20.0); CO2, Blood 36 mmol/L (21-32); Calcium, Blood 8.1 mg/dL (8.5-10.1); Chloride, Blood 93 mmol/L (98-108); Creatinine, Blood 0.84 mg/dL (0.60-1.20); Glomerular Filtration Rate >60 (60-); Glucose, Blood 162 mg/dL (70-99); Magnesium, Blood 2.2 mg/dL (1.6-2.4); Phosphorus, Blood 3.1 mg/dL (2.5-4.9); Potassium, Blood 2.9 mmol/L (3.5-5.5); Sodium, Blood 135 mmol/L (136-145)
[2019-08-08 03:51] LABS: BAND PERCENT MAN 17 % (0-8); BASOPHILS PERCENT MAN 0 % (0-2); EOSINOPHILS PERCENT MAN 0 % (0-6); LYMPHOCYTES ABSOLUTE MAN 0.36 K/mm3 (0.84-5.20); LYMPHOCYTES PERCENT MAN 3 % (21-46); METAMYELOCYTE ABSOLUTE MAN 0.12 K/mm3 (0.00-0.00); METAMYELOCYTE PERCENT MAN 1 % (0-0); MONOCYTES ABSOLUTE MAN 0.24 K/mm3 (0.16-1.47); MONOCYTES PERCENT MAN 2 % (4-13); SEG NEUTROPHILS PERCENT MAN 77 % (41-73); TOTAL CELLS COUNTED 100
--- NOTE | 2019-08-08 05:55 | NUR ---
CALL PLACED TO DR ESCOBEDO TO CLARIFY K-PHOS ORDER. POTASSIUM IS 2.9, PHOS IS 3.1. ORDERS RECEIVED TO TO CANCEL K-PHOS ORDER AND GIVE POTASSIUM 40 MEQ PO X 1 NOW.
--- NOTE | 2019-08-08 05:57 | NUR ---
SUMMARY: NO ACUTE CHANGES T/O SHIFT. PT STATED HE FELT MORE COMFORTABLE T/O NIGHT AND WAS ABLE TO GET SOME SLEEP. SBP REMAINS IN THE 110S AND HR IS IN THE 80S. LUNG SOUNDS COARSE BUT SPO2 >90% ON 1L NC. D5LR CURRENTLY INFUSING. WILL PASS REPORT TO ONCOMING SHIFT
--- NOTE | 2019-08-08 06:00 | NUR ---
PT REPORTS MINIMAL ETOH WITHDRAWAL SYMPTOMS. NO N&V, ITCHING, CADE, TACTILE/A/V DISTURBANCES. IS A&O.
--- NOTE | 2019-08-08 10:47 | NUR ---
BEDSIDE REPORT TAKEN AT 0715. PT AWAKE IN BED W/O COMPLAINTS. CIWA 2 FOR MILD TREMOR W ARMS EXTENDED; MAY BE BASELINE. PT MUCH IMPROVED FROM YESTERDAY. PT PLACED ON RA, SATS 96%. BP IMPROVED. ANXIETY IMPROVED FROM YESTERDAY. DR CARIAS IN TO SEE PT THIS AM; CHANGED TO MED STATUS NO TELE. PT ATE REG DIET; YARI WELL. UP AD MARY.
--- NOTE | 2019-08-08 12:44 | NUR ---
PT BECAME VERY ANXIOUS/AGITATED W C/O UPSET STOMACH. REQUESTED ZOFRAN, MILK AND ATIVAN. BUSINESS ADMINISTRATION INSTRUCTOR MEDICATED PT W ZOFRAN, ATIVAN, AND 1200 CLONIDINE. PT'S MOTHER AT BEDSIDE; PT BECAME UPSET AND AGITATED SHORTLY AFTER PT'S MOTHER ARRIVED. DECLINED SHOWER WELL. LIBRIUM OFFERED; PT DECLINED.
[2019-08-08 13:59] LABS: Albumin, Blood 2.9 g/dL (3.4-5.0); Anion Gap 6 mmol/L (6-16); Blood Urea Nitrogen 9 mg/dL (8-24); Bun/Creatinine Ratio 12.7 (12.0-20.0); CO2, Blood 31 mmol/L (21-32); Calcium, Blood 8.4 mg/dL (8.5-10.1); Chloride, Blood 97 mmol/L (98-108); Creatinine, Blood 0.71 mg/dL (0.60-1.20); Glomerular Filtration Rate >60 (60-); Glucose, Blood 152 mg/dL (70-99); Phosphorus, Blood 1.7 mg/dL (2.5-4.9); Potassium, Blood 3.3 mmol/L (3.5-5.5); Sodium, Blood 134 mmol/L (136-145)
--- NOTE | 2019-08-08 17:05 | NUR ---
PT CALM, WORKED W PHYSCICAL THERAPY. KPHOS INFUSING.
--- NOTE | 2019-08-08 20:00 | NUR ---
ASSUMPTION OF CARE: PT ALERT AND ORIENTED. VSS. SBP 120S, HR IN THE 90S. LUNG SOUNDS ARE STILL COARSE HOWEVER PT IS SATTING >90% ON RA. VOIDING ON OWN. BILAT AC IVS. D5LR INFUSING AT 100MLS/HR. PT IS MEDICAL NO TELE STATUS. PT DENIES WITHDRAWAL SYMPTOMS AT THIS TIME. WILL CONTINUE TO MONITOR
--- NOTE | 2019-08-08 23:38 | NUR ---
PT CURRENTLY RESTING. NO CURRENT COMPLAINTS. VOIDING ON OWN. REQUESTED JELLO AND PUDDING. BED IN LOWEST POSITION. CALL LIGHT IN REACH.
[2019-08-09 04:29] LABS: Anion Gap 6 mmol/L (6-16); Blood Urea Nitrogen 9 mg/dL (8-24); Bun/Creatinine Ratio 11.5 (12.0-20.0); CO2, Blood 29 mmol/L (21-32); Calcium, Blood 8.7 mg/dL (8.5-10.1); Chloride, Blood 102 mmol/L (98-108); Creatinine, Blood 0.78 mg/dL (0.60-1.20); Glomerular Filtration Rate >60 (60-); Glucose, Blood 79 mg/dL (70-99); Potassium, Blood 3.2 mmol/L (3.5-5.5); Sodium, Blood 137 mmol/L (136-145)
--- NOTE | 2019-08-09 05:42 | NUR ---
SUMMARY: NO ACUTE CHANGES T/O SHIFT. PT DID HAVE AN EPISODE OF ANXIETY AND THREATENED TO LEAVE AMA. PT MEDICATED PER MAR AND ANXIETY R/T WITHDRAWAL. PT CURRENTLY RESTING. VSS. WILL PASS REPORT TO NEXT SHIFT
--- NOTE | 2019-08-09 06:02 | NUR ---
PT CURRENTLY WANTING TO AMA. PULLED OUT LAC IV. WENT OVER RISKS OF LEAVING AMA. FIXATED REGARDING INSURANCE REIMBURSEMENT TO HOSPITAL AND NOT WANTING TO BE CHARGED FOR HOSPITAL STAY. ALL EFFORTS HAVE BEEN MADE TO CONVINCE PT TO STAY UNTIL CAN ROUND ON PT. PT ADAMANT HE IS LEAVING. PTS MOTHER CURRENTLY IN ROOM
--- NOTE | 2019-08-09 06:37 | NUR ---
PT AGREEABLE TO STAYING UNDER PHYSICIAN ROUNDS ON HIM THIS AM
[2019-08-09] MEDS ORDERED: GABA300 PO (08:51)
--- NOTE | 2019-08-09 08:58 | NUR ---
DISCHARGE: DR. CARIAS WAS IN TO SEE PT AND WROTE FOR DISCHARGE. WENT INTO GIVE PT THE POTASSIUM DR. CARIAS ORDERED AND PT WAS GONE WITH IV SITTING ON THE TABLE. THEREFORE, PT DID NOT RECEIVE HIS DISCHARGE INSTRUCTIONS. MEDS WERE CALLED INTO [facility] BY PAMELA RIOS RN.
== END 2019-08-09 09:00 | disposition home or self-care (01) | DRG 896 ==
LOC: ER 22:58 → ICUW 23:55 → ICUE 23:55
PROVIDERS: Emergency Medicine; Hospitalist; Internal Medicine Critical Care Medicine; ADMIT Internal Medicine
DX: F10.239 Alcohol dependence with withdrawal, unspecified (principal); G92 Toxic encephalopathy; E87.2 Acidosis; N17.9 Acute kidney failure, unspecified; F17.210 Nicotine dependence, cigarettes, uncomplicated; E78.00 Pure hypercholesterolemia, unspecified; G89.4 Chronic pain syndrome; E87.6 Hypokalemia; F32.9 Major depressive disorder, single episode, unspecified; F41.9 Anxiety disorder, unspecified; K20.9 Esophagitis, unspecified; Y90.8 Blood alcohol level of 240 mg/100 ml or more
CPT/HCPCS: 0099U; 36415; 36600; 71260; 80048; 80053; 80069; 82550; 82553; 82803; 83690; 83735; 85025; 85027; 93005; 93010; 94640; 94660; 96361; 96374-59; 97110; 97161; 99285-25; C9113; G0480; J0360; J1650; J1956; J2060; J2405; J2930; J3475; J3480; J7030; J7060; J7070; J7120; Q9967

== ENCOUNTER 2019-09-28 03:01 | Inpatient (IN) | payer OTHER ==
[~2019-09-28] VITALS: Ht 182.9 cm; Wt 95.3 kg
[~2019-09-28 03:01] MED LIST changes: +GABA300 PO
[2019-09-28] MEDS ORDERED: BUPR75 PO (03:10)
[2019-09-28] MEDS ORDERED: ATEN25 PO (03:10)
[2019-09-28 03:15] LABS: BASOPHILS ABSOLUTE AUTO 0.05 K/mm3 (0.00-0.23); BASOPHILS PERCENT AUTO 1 % (0-2); EOSINOPHILS PERCENT AUTO 0 % (0-6); Hematocrit 45.9 % (37.0-53.0); Hemoglobin 16.3 g/dL (13.5-17.5); IMMATURE GRAN ABSOLUTE AUTO 0.04 K/mm3 (0.00-0.10); IMMATURE GRAN PERCENT AUTO 1 % (0-1); LYMPHOCYTES ABSOLUTE AUTO 0.72 K/mm3 (0.84-5.20); LYMPHOCYTES PERCENT AUTO 9 % (21-46); MONOCYTES ABSOLUTE AUTO 0.46 K/mm3 (0.16-1.47); MONOCYTES PERCENT AUTO 6 % (4-13); Mean Corpuscular HGB 32.1 pg (26.0-34.0); Mean Corpuscular HGB Conc 35.5 g/dL (31.5-36.5); Mean Corpuscular Volume 90 fL (80-100); Mean Platelet Volume 9.8 fL (9.1-12.4); NEUTROPHILS ABSOLUTE AUTO 6.97 K/mm3 (1.96-9.15); NEUTROPHILS PERCENT AUTO 85 % (41-73); Platelet Count 196 K/mm3 (150-400); RDW Coefficient Variation 13.2 % (11.7-14.2); RDW Standard Deviation 44.7 fL (35.1-46.3); Red Blood Cell Count 5.08 M/mm3 (4.30-5.90); White Blood Cell Count 8.24 K/mm3 (4.00-11.30)
[2019-09-28 03:38] LABS: Alanine Aminotransfer (ALT/SGP 92 U/L (12-78); Albumin, Blood 3.6 g/dL (3.4-5.0); Albumin/Globulin Ratio 1.1 (0.8-1.8); Alk Phos 81 U/L (50-136); Anion Gap 20 mmol/L (6-16); Aspartate Aminotrans (AST/SGOT 99 U/L (12-37); Bilirubin, Total 1.8 mg/dL (0.1-1.0); Blood Urea Nitrogen 9 mg/dL (8-24); Bun/Creatinine Ratio 12.7 (12.0-20.0); CO2, Blood 22 mmol/L (21-32); Calcium, Blood 9.2 mg/dL (8.5-10.1); Chloride, Blood 88 mmol/L (98-108); Creatinine, Blood 0.71 mg/dL (0.60-1.20); Ethanol (Alcohol), Blood, Med <3 mg/dL; Globulin, Blood 3.4 g/dL (2.2-4.0); Glomerular Filtration Rate >60 (60-); Glucose, Blood 134 mg/dL (70-99); Potassium, Blood 3.1 mmol/L (3.5-5.5); Sodium, Blood 130 mmol/L (136-145)
[2019-09-28 03:50] LABS: Beta-hydroxybutyrate 28.7 mg/dL (0.2-2.8); Troponin I <0.015 ng/mL (0.000-0.040)
--- NOTE | 2019-09-28 06:04 | NUR ---
ARRIVE TO PCU 14 VIA GURNEY, TRANSFER HIMSELF FROM [place] TO BED BY SLIDING OVER. PATIENT SHAKEY, BUT NOT COLD. ATIVAN GIVEN IV WITH RELIEF FROM SHAKING. ADMIT COMPLETED, MEDS STARTED, WILL HAND OFF TO DAY SHIFT TO COMPLETE ADMISSION ASSESSMENT. WILL MONITOR TILL THEN.
[2019-09-28 07:10] LABS: BASOPHILS ABSOLUTE AUTO 0.02 K/mm3 (0.00-0.23); BASOPHILS PERCENT AUTO 0 % (0-2); EOSINOPHILS PERCENT AUTO 0 % (0-6); Hematocrit 41.4 % (37.0-53.0); Hemoglobin 14.5 g/dL (13.5-17.5); IMMATURE GRAN ABSOLUTE AUTO 0.02 K/mm3 (0.00-0.10); IMMATURE GRAN PERCENT AUTO 0 % (0-1); LYMPHOCYTES ABSOLUTE AUTO 0.57 K/mm3 (0.84-5.20); LYMPHOCYTES PERCENT AUTO 13 % (21-46); MONOCYTES ABSOLUTE AUTO 0.42 K/mm3 (0.16-1.47); MONOCYTES PERCENT AUTO 9 % (4-13); Mean Corpuscular HGB 32.6 pg (26.0-34.0); Mean Platelet Volume 10.2 fL (9.1-12.4); NEUTROPHILS ABSOLUTE AUTO 3.46 K/mm3 (1.96-9.15); NEUTROPHILS PERCENT AUTO 77 % (41-73); Platelet Count 132 K/mm3 (150-400); RDW Coefficient Variation 13.6 % (11.7-14.2); RDW Standard Deviation 46.6 fL (35.1-46.3); Red Blood Cell Count 4.45 M/mm3 (4.30-5.90); White Blood Cell Count 4.49 K/mm3 (4.00-11.30)
[2019-09-28 07:17] LABS: Alanine Aminotransfer (ALT/SGP 74 U/L (12-78); Albumin/Globulin Ratio 1.1 (0.8-1.8); Alk Phos 63 U/L (50-136); Anion Gap 8 mmol/L (6-16); Aspartate Aminotrans (AST/SGOT 74 U/L (12-37); Bilirubin, Total 1.8 mg/dL (0.1-1.0); Blood Urea Nitrogen 8 mg/dL (8-24); Bun/Creatinine Ratio 11.5 (12.0-20.0); CO2, Blood 30 mmol/L (21-32); Calcium, Blood 8.1 mg/dL (8.5-10.1); Chloride, Blood 95 mmol/L (98-108); Creatinine, Blood 0.69 mg/dL (0.60-1.20); Globulin, Blood 2.8 g/dL (2.2-4.0); Glomerular Filtration Rate >60 (60-); Glucose, Blood 99 mg/dL (70-99); Magnesium, Blood 1.8 mg/dL (1.6-2.4); Sodium, Blood 133 mmol/L (136-145); Total Protein, Blood 5.8 g/dL (6.4-8.2)
[2019-09-28 07:28] LABS: Mean Corpuscular Volume 93 fL (80-100)
--- NOTE | 2019-09-28 15:07 | NUR ---
PT CIWA STABLE AT 6 OF THIS TIME, PT WAS ABLE TO STATE HIS FULL NAME AND , KNOWS WHERE HE'S AT, AWARE OF DATE AND TIME. PT ON SCHEDULED LIBRIUM Q6 HRS, PT STILL HAS VISIBLE TREMORS WITH MOVEMENTS, SLIGHT NAUSEA THAT WAS RELIEVED BY IV ZOFRAN. PT ALSO RESUMED ON REGULAR DIET, NO VOMITING/EMESIS REPORTED. PT VITALS HAS BEEN STABLE, HRR SINUS RANGING 90'S-100'S. PT DENIES ANY CHEST PAIN/PRESSURE. PT ABLE TO AMBULATE WITH ASSIST VIA WALKER TO THE BATHROOM. PT TO FOLLOW UP LABS THIS AFTERNOON. PT CURRENTLY RESTING IN BED. PT ABLE TO MAKE NEEDS KNOWN, CALL LIGHTS WITHIN REACH.
[2019-09-28 15:44] LABS: Anion Gap 7 mmol/L (6-16); Blood Urea Nitrogen 6 mg/dL (8-24); Bun/Creatinine Ratio 9.7 (12.0-20.0); CO2, Blood 28 mmol/L (21-32); Calcium, Blood 8.1 mg/dL (8.5-10.1); Chloride, Blood 101 mmol/L (98-108); Creatinine, Blood 0.62 mg/dL (0.60-1.20); Glomerular Filtration Rate >60 (60-); Glucose, Blood 108 mg/dL (70-99); Potassium, Blood 3.1 mmol/L (3.5-5.5); Sodium, Blood 136 mmol/L (136-145)
--- NOTE | 2019-09-28 17:52 | NUR ---
PT HAD EPISODE OF ASPIRATION UPON TAKING HIS POTASSIUM TABLET AT AROUND 1600 PT WAS OFFERED IF HE WANTS HIS PILLS BREAK IN HALF BUT REFUSED, HE DIDNT HAVE PROBLEM TAKING THESE PILLS THIS MORNING, PT WAS ALSO IN A SITTING POSITION WHILE TAKING THE MEDS. PT STARTED COUGHING TRYING TO COUGH THE PILLS OUT, PT DIDN'T HAVE ANYTHING TO COUGH OUT PT STATED HE FELT LIKE THE MEDICATION FINALLY GOT DOWN BUT WAS STILL COUGHING AND STARTED C/O SHORTNESS OF BREATH O2 SATS WAS AT 85, PT OFFERED O2 SUPPORT AT 4L VIA NASAL CANNULA PT WENT UP TO 89-90% PT REQUESTED TO KEEP O2 AND TO GIVE HIMSELF SOME TIME TO CATCH HIS BREATH PT CURRENTLY NOW AT 92% ON 4L. DR RIOS MADE AWARE, STATED CT SCAN OF ABDOMEN WAS ORDERED ANYWAYS FOR ESOPHAGITIS, SO WILL WAIT FOR THE RESULT.
--- NOTE | 2019-09-28 18:13 | NUR ---
PT WAS CURRENTLY TAKEN TO IMAGING FOR CT SCAN OF ABDOMEN.
[2019-09-29 03:46] LABS: Hematocrit 42.2 % (37.0-53.0); Hemoglobin 14.1 g/dL (13.5-17.5); Mean Corpuscular HGB 31.8 pg (26.0-34.0); Mean Corpuscular HGB Conc 33.4 g/dL (31.5-36.5); Mean Corpuscular Volume 95 fL (80-100); Mean Platelet Volume 10.8 fL (9.1-12.4); Platelet Count 93 K/mm3 (150-400); RDW Coefficient Variation 13.6 % (11.7-14.2); RDW Standard Deviation 48.8 fL (35.1-46.3); Red Blood Cell Count 4.43 M/mm3 (4.30-5.90); White Blood Cell Count 6.88 K/mm3 (4.00-11.30)
[2019-09-29 04:00] LABS: Anion Gap 6 mmol/L (6-16); Blood Urea Nitrogen 7 mg/dL (8-24); Bun/Creatinine Ratio 9.4 (12.0-20.0); CO2, Blood 28 mmol/L (21-32); Chloride, Blood 104 mmol/L (98-108); Creatinine, Blood 0.74 mg/dL (0.60-1.20); Glomerular Filtration Rate >60 (60-); Glucose, Blood 92 mg/dL (70-99); Potassium, Blood 3.2 mmol/L (3.5-5.5); Sodium, Blood 138 mmol/L (136-145)
--- NOTE | 2019-09-29 05:41 | NUR ---
SHIFT SUMMARY: TERESA IS A&OX4. VSS, NO ACUTE EVENTS OVERNIGHT. CIWA STABLE AT 4. HE DOES HAVE SOME TREMOR, MILD SWEAT, AND ANXIETY (WHICH IS BASELINE FOR HIM), BUT NO OTHER SYMPTOMS OF WITHDRAWL. HE IS ABLE TO MAKE HIS NEEDS KNOWN. HE IS TOLERATING PO INTAKE WELL, BUT REPORTS THAT IT TAKES HIM A LONG TIME TO EAT D/T ESOPHAGEAL DISCOMFORT AND POOR APPETITE. HE ATE ABOUT 50% OF HIS DINNER AND DID HAVE A SNACK OF HALF A ROAST BEEF SANDWICH EARLY THIS MORNING. IVs TO L WRIST AND R AC PATENT. HE USES THE URINAL WITHOUT DIFFICULTY. HE IS A STANBY ASSIST WITH THE FWW. HE STATES THAT HE HAS SOME WEAKNESS ON THE RIGHT LEG AND DIFFICULTY WALKING LONG DISTANCES D/T A LONG HEALING PROCESS FROM A FRACTURED RIGHT HIP THAT WAS REPAIRED AT [facility] APPROX 6 MONTHS AGO WITH A PLATE AND SCREWS. HE STATES THAT HE HAD DIFFICULTY PARTICIPATING IN PHYSICAL THERAPY D/T INADEQUATE PAIN CONTROL. HE USES HIS CALL LIGHT APPROPRIATELY. HE IS PLEASANT AND COOPERATIVE, MILDLY ANXIOUS AT TIMES. HE WAS TITRATED OFF OF O2 AND SATS REMAIN ABOVE 93% ORA. HE IS LYING IN BED WITH HIS CALL LIGHT IN REACH. WILL REPORT TO DAY SHIFT RN.
--- NOTE | 2019-09-29 10:37 | NUR ---
PT CHANGE OF STATUS TO MEDICAL WITH NO TELE. PT VITALS STABLE, ETOH WITHDRAWAL STABLE, TREMORS STILL SLIGHTLY VISIBLE PT REQUESTED ATIVAN 1MG GIVEN. PT HAS BEEN ON ROOM AIR SATS ABOVE 93% NO /SOB AT THIS TIME. PT CURRENTLY IN BED REQUESTING A SHOWER PRIOR TO TRANSPORT. NO OTHER ISSUES ENCOUNTERED. WILL MONITOR
--- NOTE | 2019-09-29 12:23 | NUR ---
PT ARRIVED TO THE UNIT, ORIENTED TO THE ROOM. YASH PREFORMED, LIBRIUM GIVEN. PT STATES THAT HE IS FEELING MUCH BETTER THEN WHEN HE ARRIVED. NO COMPLAINTS OF PAIN.
--- NOTE | 2019-09-29 17:14 | NUR ---
SHIFT SUMMARY- PT IS A/O PLESANT AND COOPERATIVE. HE TRANSFREED FROM PCU. CIWA SCORES ARE BETWEEN 3-4. HE IS EATING AND DRINKING WELL. HE SLEPT FOR SEVERAL HOURS AFTER ARRIVING TO THE UNIT.
[2019-09-30 06:05] LABS: Anion Gap 7 mmol/L (6-16); Blood Urea Nitrogen 10 mg/dL (8-24); Bun/Creatinine Ratio 14.5 (12.0-20.0); CO2, Blood 25 mmol/L (21-32); Calcium, Blood 8.6 mg/dL (8.5-10.1); Chloride, Blood 106 mmol/L (98-108); Creatinine, Blood 0.69 mg/dL (0.60-1.20); Glomerular Filtration Rate >60 (60-); Glucose, Blood 85 mg/dL (70-99); Potassium, Blood 3.1 mmol/L (3.5-5.5); Sodium, Blood 138 mmol/L (136-145)
[2019-09-30] MEDS ORDERED: PANT20 PO (10:46)
[2019-09-30] MEDS ORDERED: POTCHL20ER PO (10:47)
[2019-09-30] MEDS ORDERED: CHLO10 PO (12:12)
--- NOTE | 2019-09-30 12:49 | NUR ---
PT DISCHARGED. PT DISCHARGED WITH NO ACUTE CHANGES IN ASSESSMENT. CIWA'S STABLE. PT FOLLOW UP APPOINTMENT MADE BY CARE MANAGEMENT. RESOURCES FOR ALCOHOL TREATMENT GIVEN TO PT BY CARE MANAGEMENT. HARD SCRIPT FOR LIBRIUM GIVEN TO PT. PT EDUCATED ON NEW MEDS AND DENIED NEED FOR FURTHER QUESTIONS. PT WHEELED OUT BY AIDE AND DRIVEN HOME BY PARENTS.
== END 2019-09-30 12:38 | disposition home or self-care (01) | DRG 897 ==
LOC: ER 03:01 → PCU 05:19 → MEDS 09-29 12:06
PROVIDERS: Emergency Medicine; Internal Medicine; ADMIT Internal Medicine
DX: F10.239 Alcohol dependence with withdrawal, unspecified (principal); E87.4 Mixed disorder of acid-base balance; F41.9 Anxiety disorder, unspecified; F32.9 Major depressive disorder, single episode, unspecified; E87.6 Hypokalemia; E83.42 Hypomagnesemia; F17.290 Nicotine dependence, other tobacco product, uncomplicated
CPT/HCPCS: 36415; 71045; 71260; 80048; 80053; 82010; 82800; 83735; 84484; 85025; 85027; 85379; 93005; 93010; 94760; 96361; 96365; 96375; 99285-25; A9270; A9270-GY; C9113; G0480; J1650; J2060; J2405; J2550; J3411; J3475; J7030; J7042; J7120; Q9967

== ENCOUNTER 2019-11-19 12:49 | Inpatient (IN) | payer OTHER ==
[~2019-11-19] VITALS: Ht 182.9 cm; Wt 98.8 kg
[~2019-11-19 12:49] MED LIST changes: +BUPR75 PO; +CHLO10 PO; +PANT20 PO; +POTCHL20ER PO
[2019-11-19 13:23] LABS: BASOPHILS ABSOLUTE AUTO 0.04 K/mm3 (0.00-0.23); BASOPHILS PERCENT AUTO 0 % (0-2); EOSINOPHILS PERCENT AUTO 0 % (0-6); Hematocrit 44.5 % (37.0-53.0); Hemoglobin 15.3 g/dL (13.5-17.5); IMMATURE GRAN ABSOLUTE AUTO 0.06 K/mm3 (0.00-0.10); IMMATURE GRAN PERCENT AUTO 1 % (0-1); LYMPHOCYTES ABSOLUTE AUTO 0.86 K/mm3 (0.84-5.20); LYMPHOCYTES PERCENT AUTO 8 % (21-46); MONOCYTES ABSOLUTE AUTO 0.68 K/mm3 (0.16-1.47); MONOCYTES PERCENT AUTO 7 % (4-13); Mean Corpuscular HGB 30.8 pg (26.0-34.0); Mean Corpuscular HGB Conc 34.4 g/dL (31.5-36.5); Mean Corpuscular Volume 90 fL (80-100); NEUTROPHILS ABSOLUTE AUTO 8.69 K/mm3 (1.96-9.15); NEUTROPHILS PERCENT AUTO 84 % (41-73); Platelet Count 241 K/mm3 (150-400); RDW Coefficient Variation 13.2 % (11.7-14.2); RDW Standard Deviation 43.6 fL (35.1-46.3); Red Blood Cell Count 4.97 M/mm3 (4.30-5.90); White Blood Cell Count 10.33 K/mm3 (4.00-11.30)
[2019-11-19 13:54] LABS: Alanine Aminotransfer (ALT/SGP 99 U/L (12-78); Albumin, Blood 4.1 g/dL (3.4-5.0); Albumin/Globulin Ratio 1.2 (0.8-1.8); Alk Phos 78 U/L (50-136); Anion Gap 23 mmol/L (6-16); Aspartate Aminotrans (AST/SGOT 128 U/L (12-37); Beta-hydroxybutyrate 8.1 mg/dL (0.2-2.8); Blood Urea Nitrogen 11 mg/dL (8-24); CO2, Blood 22 mmol/L (21-32); Calcium, Blood 9.4 mg/dL (8.5-10.1); Chloride, Blood 81 mmol/L (98-108); Creatinine, Blood 0.73 mg/dL (0.60-1.20); Ethanol (Alcohol), Blood, Med <3 mg/dL; Globulin, Blood 3.4 g/dL (2.2-4.0); Glomerular Filtration Rate >60 (60-); Glucose, Blood 96 mg/dL (70-99); Potassium, Blood 3.7 mmol/L (3.5-5.5); Sodium, Blood 126 mmol/L (136-145); Total Protein, Blood 7.5 g/dL (6.4-8.2)
[2019-11-19 14:02] LABS: Magnesium, Blood 0.6 mg/dL (1.6-2.4)
[2019-11-19] MEDS ORDERED: METOPROLOL SUCC25 MG PO (14:22)
[2019-11-19] MEDS ORDERED: BUPROPION XL150 M1 PO (14:23)
[2019-11-19] MEDS ORDERED: LAMOTRIGINE200 MG PO (14:23)
[2019-11-19 14:26] LABS: Bicarbonate Venous 31.4 mmol/L (24.0-30.0); PCO2 Venous 29.5 mmHg (38-42); PO2 Venous 168 mmHg (38-42)
--- NOTE | 2019-11-19 18:18 | NUR ---
PCU ADMIT/DAYSHIFT SUMMARY PATIENT ALERT AND ORIENTED TO SELF AND LOCATION UPON ARRIVAL. PATIENT FALLS ASLEEP EASILY. TRANSFERED OVER TO UNIT BED VIA SLIDER SHEET AND 4 ASSIT. RESP E/U ON ROOM AIR - LUNG SOUNDS CLEAR. PATIENT SINUS TACH AT 110. PATIENT DENIES PAIN. BRUISING NOTED ON LOW BACK/SIDE - PATIENT REPORT THAT HE BELIEVES HE FELL A FEW TIMES AT HOME. PATIENT VERY TREMULOUS AND DIAPHORETIC. CIWA 8-12. PATIENT MEDICATED PER EMAR. WILL CONTINUE TO MONITOR AND REPORT TO NOC SHIFT RN.
[2019-11-19 19:40] LABS: Albumin, Blood 3.6 g/dL (3.4-5.0); Anion Gap 9 mmol/L (6-16); Blood Urea Nitrogen 6 mg/dL (8-24); Bun/Creatinine Ratio 9.2 (12.0-20.0); CO2, Blood 28 mmol/L (21-32); Calcium, Blood 8.6 mg/dL (8.5-10.1); Chloride, Blood 95 mmol/L (98-108); Creatinine, Blood 0.65 mg/dL (0.60-1.20); Glomerular Filtration Rate >60 (60-); Glucose, Blood 104 mg/dL (70-99); Phosphorus, Blood 4.7 mg/dL (2.5-4.9); Potassium, Blood 3.2 mmol/L (3.5-5.5); Sodium, Blood 132 mmol/L (136-145)
--- NOTE | 2019-11-19 20:32 | NUR ---
ASSUMED CARE OF PATIENT AT APPROXIMATELY 1905 FROM JULIAN Cortez RN. PATIENT MOTHER IN ROOM DURING BEDSIDE REPORT. PATIENT ABLE TO STATE NAME, , LOCATION AND CURRENT DATE. CIWA 9; SEE ASSESSMENT; MEDICATED PER EMAR. PATIENT REPORTS AT HOME HE IS SOMETIMES NOT ABLE TO SWALLOW WELL IN THE MORNING; LIKE "SOMETHING IS STUCK" POINTING TO THROAT. PATIENT AND PATIENT'S MOTHER REPORT PATIENT HAS BEEN DRINKING ALOT OF ENSURES AT HOME; CLEAR APPLE JUICE ENSURE PROVIDED TO PATIENT; ABLE TO DRINK W/O DIFFICULTY. PATIENT DENIES PAIN, NUMBNESS, TINGLING, DIZZINESS OR NAUSEA. IVF INFUSING PER ORDER. ST ON TELE; OXYGEN SATURATION ABOVE 90% ON ROOM AIR. SCDS PLACED. PATIENT CURRENTLY RESTING IN BED; CALL LIGHT IN REACH; BED ALARM ON; BED IN LOWEST POSISTION; WILL CONTINUE TO MONITOR AND ASSESS UNTIL END OF SHIFT.
[2019-11-20 03:52] LABS: BASOPHILS ABSOLUTE AUTO 0.02 K/mm3 (0.00-0.23); BASOPHILS PERCENT AUTO 1 % (0-2); EOSINOPHILS ABSOLUTE AUTO 0.05 K/mm3 (0.00-0.68); EOSINOPHILS PERCENT AUTO 1 % (0-6); Hematocrit 41.2 % (37.0-53.0); Hemoglobin 13.7 g/dL (13.5-17.5); IMMATURE GRAN ABSOLUTE AUTO 0.01 K/mm3 (0.00-0.10); IMMATURE GRAN PERCENT AUTO 0 % (0-1); LYMPHOCYTES ABSOLUTE AUTO 1.27 K/mm3 (0.84-5.20); LYMPHOCYTES PERCENT AUTO 30 % (21-46); MONOCYTES ABSOLUTE AUTO 0.52 K/mm3 (0.16-1.47); MONOCYTES PERCENT AUTO 12 % (4-13); Mean Corpuscular HGB 30.2 pg (26.0-34.0); Mean Corpuscular HGB Conc 33.3 g/dL (31.5-36.5); Mean Corpuscular Volume 91 fL (80-100); Mean Platelet Volume 9.8 fL (9.1-12.4); NEUTROPHILS ABSOLUTE AUTO 2.41 K/mm3 (1.96-9.15); NEUTROPHILS PERCENT AUTO 56 % (41-73); Platelet Count 171 K/mm3 (150-400); RDW Coefficient Variation 13.5 % (11.7-14.2); RDW Standard Deviation 45.9 fL (35.1-46.3); Red Blood Cell Count 4.53 M/mm3 (4.30-5.90); White Blood Cell Count 4.28 K/mm3 (4.00-11.30)
[2019-11-20 04:16] LABS: Anion Gap 7 mmol/L (6-16); Blood Urea Nitrogen 6 mg/dL (8-24); CO2, Blood 30 mmol/L (21-32); Chloride, Blood 101 mmol/L (98-108); Creatinine, Blood 0.75 mg/dL (0.60-1.20); Glomerular Filtration Rate >60 (60-); Glucose, Blood 95 mg/dL (70-99); Magnesium, Blood 1.9 mg/dL (1.6-2.4); Potassium, Blood 3.1 mmol/L (3.5-5.5); Sodium, Blood 138 mmol/L (136-145)
--- NOTE | 2019-11-20 12:06 | NUR ---
PT'S LAMICTAL WAS SENT TO PHARMACY FOR VERIFICATION. PT STS THAT HE TOOK HIS LAMICTAL WHEN MOTHER ARRIVED WITH IT
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
--- NOTE | 2019-11-20 17:20 | NUR ---
Shift Summary Received report from Kayla PCU-RN @ [id number], patient arrived to unit at 1550 via w/c. A/Ox3, very flat affect. CIWA score on Med unit is 5-7. Noticable mild had tremors. SCD's placed on patient. Denies pain, c/o anxiety. RA. Breathing E/U. Resting in bed, uses urinal at bedside. Bed in lowest position. Calm demeanor. Will continue to monitor.
--- NOTE | 2019-11-21 04:21 | NUR ---
SUMMARY PT HAD NOTED CIWA OF 7 AND WAS TX W/ LIBRIUM ORDERED. PT TREMORS INCREASED AND ANXIETY WAS ELEVATED. PT RESPONDED WELL TO TX. PT HAS BEEN SLEEPING WELL T/O SHIFT. PT CURRENTLY SLEEPING AND IN NO DISTRESS. CALL LIGHT IN REACH.
[2019-11-21 05:42] LABS: Albumin, Blood 2.8 g/dL (3.4-5.0); Anion Gap 6 mmol/L (6-16); Blood Urea Nitrogen 10 mg/dL (8-24); CO2, Blood 26 mmol/L (21-32); Calcium, Blood 8.2 mg/dL (8.5-10.1); Chloride, Blood 110 mmol/L (98-108); Creatinine, Blood 0.77 mg/dL (0.60-1.20); Glomerular Filtration Rate >60 (60-); Glucose, Blood 78 mg/dL (70-99); Phosphorus, Blood 4.4 mg/dL (2.5-4.9); Potassium, Blood 3.5 mmol/L (3.5-5.5); Sodium, Blood 142 mmol/L (136-145)
--- NOTE | 2019-11-21 18:01 | NUR ---
SHIFT SUMMARY. A&OX4, PLEASANT AND COOPERATIVE WITH CARE. CIWA 7 OR BELOW THIS SHIFT, MANAGED WELL WITH LIBRIUM 50MG PO TWICE THIS SHIFT. CIWA SYMPTOMS INCLUDE, SWEATING/NAUSEA/HEADACHE/TREMORS. PT REPORTS SYMPTOMS HAVE SUBSIDED FOR THE MOST PART THIS AFTERNOON. PT CONTINUES TO REPORT DYSPHAGIA AT TIMES, HOB ELEVATED 90 DEGREES WHILE INTAKING PO. PT REPORTS DYSPHAGIA DECREASES AFTER CARAFATE IS ADMINISTERED, AWAITING GI CONSULT. PT DENIES PAIN, SOB. NO NEW CHANGES OR CONCERNS.
--- NOTE | 2019-11-22 04:12 | NUR ---
SUMMARY PT HAD NOTED TREMORS, ANXIETY AND CADE. PT TX W/ LIBRIUM ONCE WITH GOOD RESULTS. PT STATES HE IS ANXIOUS OF UPCOMING PROCEDURE. PT SLEPT OFF AND ON T/O SHIFT. CALL LIGHT IN REACH.
--- NOTE | 2019-11-22 17:03 | NUR ---
11/22/19 1703 Joey Miller PATIENT DETERMINED TO BE ASA APPROPRIATE FOR PROPOFOL SEDATION PRIOR TO START OF PROCEDURE BY DR. Harsh Wei Placed3-LEAD EKG REVIEWED WITH PHYSICIAN PRIOR TO START OF PROCEDURE.Patient to ENDO 1History, Chart, Medications and Allergies reviewed before start of procedure.MONITOR INTACT WITH CONTINUOUS PULSE OXIMETRY AND INTERMITTENT BP.O2 VIA N/C INTACT THROUGHOUT SEDATION/PROCEDURE.
--- NOTE | 2019-11-22 18:02 | NUR ---
SHIFT SUMMARY. PT DENIES PAIN, SOB, N/V. CIWA 0. PT AMBULATED IN FIERRO AND RECIEVED SHOWER TODAY. EGD COMPLETED. PT JUST RETURNED FROM PROCEDURE, DR. MCCRACKEN IN ROOM WITH PT AT THIS TIME.
--- NOTE | 2019-11-22 19:08 | NUR ---
1830 PT DISCHARGED AMA, AMA FORM SIGNED, PT INFORMED OF RISKS AND BENEFITS. DR. WEEMS NOTIFIED, RECIEVED VERBAL PRESCRIPTION FOR OMEPRAZOLE 20MG PO BIDAC #[id number], SCRIPT CALLED IN TO [facility] CARCAMO PER PT REQUEST. PT REMOVED BOTH OF HIS OWN IV'S.
== END 2019-11-22 18:46 | disposition left against medical advice (07) | DRG 894 ==
LOC: ER 12:49 → MEDS 15:19 → PCU 15:19 → MEDS 11-20 16:01
PROVIDERS: Emergency Medicine; Internal Medicine Gastroenterology; ADMIT Family Medicine
PROC: 0DJ08ZZ Inspection of Upper Intestinal Tract, Via Natural or Artificial Opening Endoscopic (ICD-10-PCS; principal; 2019-11-22 16:00)
DX: F10.239 Alcohol dependence with withdrawal, unspecified (principal); E87.3 Alkalosis; K22.10 Ulcer of esophagus without bleeding; Y90.0 Blood alcohol level of less than 20 mg/100 ml; E88.89 Other specified metabolic disorders; E83.42 Hypomagnesemia; I10 Essential (primary) hypertension; E87.6 Hypokalemia; R13.10 Dysphagia, unspecified; F41.9 Anxiety disorder, unspecified; Z20.828 Contact with and (suspected) exposure to other viral communicable diseases
CPT/HCPCS: 36415; 71046; 80048; 80053; 80069; 82010; 82803; 83690; 83735; 85025; 96361; 96365; 96368; 96375; 99285-25; C9113; G0480; J2060; J2250; J2405; J2560; J2704; J3411; J3475; J3480; J7030; J7120; U0002

== ENCOUNTER 2020-03-19 07:46 | Day surgery (SDC) | payer OTHER ==
[~2020-03-19] VITALS: Ht 182.9 cm; Wt 95.5 kg
[~2020-03-19 07:46] MED LIST changes: +BUPROPION XL150 M1 PO; +CLON1; +HYDPAM25; +LAMOTRIGINE200 MG PO; +METOPROLOL SUCC25 MG PO; +OMEP20ER PO
== END 2020-03-19 09:48 | disposition home or self-care (01) ==
LOC: ORSCSDS 07:46
PROVIDERS: Internal Medicine Gastroenterology
PROC: 0D758ZZ Dilation of Esophagus, Via Natural or Artificial Opening Endoscopic (ICD-10-PCS; principal; 2020-03-19 09:00)
DX: R13.10 Dysphagia, unspecified (principal); K22.10 Ulcer of esophagus without bleeding; K22.2 Esophageal obstruction; F41.8 Other specified anxiety disorders; I10 Essential (primary) hypertension; Z79.899 Other long term (current) drug therapy
CPT/HCPCS: C1726; J2250; J2704; J7120

== ENCOUNTER 2020-04-24 06:51 | Day surgery (SDC) | payer OTHER ==
[~2020-04-24] VITALS: Ht 182.9 cm; Wt 100.1 kg
[~2020-04-24 06:51] MED LIST changes: +Bupropion Xl150 MG PO; +LAMOTRIGINE300 MG PO; +Prevacid Soluta30 MG PO
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
== END 2020-04-24 09:10 | disposition home or self-care (01) ==
LOC: ORSCSDS 06:51
PROVIDERS: Internal Medicine Gastroenterology
PROC: 0D758ZZ Dilation of Esophagus, Via Natural or Artificial Opening Endoscopic (ICD-10-PCS; principal; 2020-04-24 08:00)
DX: K22.10 Ulcer of esophagus without bleeding (principal); K22.2 Esophageal obstruction; I10 Essential (primary) hypertension; F41.8 Other specified anxiety disorders; F10.10 Alcohol abuse, uncomplicated; Z79.899 Other long term (current) drug therapy
CPT/HCPCS: C1726; J2250; J2405; J2704; J7120

== ENCOUNTER 2020-11-29 23:58 | Emergency (ER) | payer OTHER ==
[~2020-11-29] VITALS: Ht 182.9 cm; Wt 108.9 kg
[~2020-11-29 23:58] MED LIST changes: +OXYC5 PO
== END 2020-11-30 01:46 | disposition home or self-care (01) ==
LOC: ER 23:58
DX: T65.891A Toxic effect of other specified substances, accidental (unintentional), initial encounter (principal); H10.212 Acute toxic conjunctivitis, left eye; I10 Essential (primary) hypertension; F17.290 Nicotine dependence, other tobacco product, uncomplicated; S06.0X0A Concussion without loss of consciousness, initial encounter; S01.112A Laceration without foreign body of left eyelid and periocular area, initial encounter; S60.221A Contusion of right hand, initial encounter; Z23 Encounter for immunization; Z79.899 Other long term (current) drug therapy; Y09 Assault by unspecified means
CPT/HCPCS: 12011; 70450; 73130; 90471; 90714; 99283; 99284-25; A9270

== ENCOUNTER 2021-02-11 21:17 | Observation (INO) | payer OTHER ==
[~2021-02-11] VITALS: Ht 182.9 cm; Wt 97.5 kg
[~2021-02-11 21:17] MED LIST changes: +Acetaminophen500 MG PO; +BENZ100A PO; +IBUP600 PO; +ONDA4ODT MM
[2021-02-11 21:42] LABS: BASOPHILS ABSOLUTE AUTO 0.04 K/mm3 (0.00-0.23); BASOPHILS PERCENT AUTO 1 % (0-2); EOSINOPHILS ABSOLUTE AUTO 0.13 K/mm3 (0.00-0.68); EOSINOPHILS PERCENT AUTO 2 % (0-6); Hematocrit 44.9 % (37.0-53.0); Hemoglobin 15.1 g/dL (13.5-17.5); IMMATURE GRAN ABSOLUTE AUTO 0.01 K/mm3 (0.00-0.10); IMMATURE GRAN PERCENT AUTO 0 % (0-1); LYMPHOCYTES ABSOLUTE AUTO 3.31 K/mm3 (0.84-5.20); LYMPHOCYTES PERCENT AUTO 52 % (21-46); MONOCYTES ABSOLUTE AUTO 0.93 K/mm3 (0.16-1.47); MONOCYTES PERCENT AUTO 15 % (4-13); Mean Corpuscular HGB 30.8 pg (26.0-34.0); Mean Corpuscular HGB Conc 33.6 g/dL (31.5-36.5); Mean Corpuscular Volume 92 fL (80-100); Mean Platelet Volume 10.5 fL (9.1-12.4); NEUTROPHILS ABSOLUTE AUTO 1.97 K/mm3 (1.96-9.15); NEUTROPHILS PERCENT AUTO 31 % (41-73); Platelet Count 204 K/mm3 (150-400); RDW Coefficient Variation 14.6 % (11.7-14.2); RDW Standard Deviation 48.7 fL (35.1-46.3); White Blood Cell Count 6.39 K/mm3 (4.00-11.30)
[2021-02-11 22:58] LABS: Alanine Aminotransfer (ALT/SGP 192 U/L (12-78); Albumin, Blood 3.7 g/dL (3.4-5.0); Albumin/Globulin Ratio 1.1 (0.8-1.8); Alk Phos 87 U/L (50-136); Anion Gap 9 mmol/L (6-16); Aspartate Aminotrans (AST/SGOT 156 U/L (12-37); Bilirubin, Total 0.3 mg/dL (0.1-1.0); Blood Urea Nitrogen 11 mg/dL (8-24); Bun/Creatinine Ratio 8.7 (12.0-20.0); CO2, Blood 22 mmol/L (21-32); Calcium, Blood 7.9 mg/dL (8.5-10.1); Chloride, Blood 111 mmol/L (98-108); Creatinine, Blood 1.26 mg/dL (0.60-1.20); Globulin, Blood 3.5 g/dL (2.2-4.0); Glomerular Filtration Rate >60 (60-); Glucose, Blood 88 mg/dL (70-99); Potassium, Blood 4.1 mmol/L (3.5-5.5); Sodium, Blood 142 mmol/L (136-145); Total Protein, Blood 7.2 g/dL (6.4-8.2)
[2021-02-11] MEDS ORDERED: Hydroxyzine HCl25 MG PO (23:54)
[2021-02-11] MEDS ORDERED: CLONAZEPAM1 MG PO (23:55)
[2021-02-11] MEDS ORDERED: LAMOTRIGINE200 MG PO (23:55)
[2021-02-11] MEDS ORDERED: Budeprion Sr150 MG PO (23:56)
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
[2021-02-12 09:49] LABS: International Normalized Ratio 0.92
--- NOTE | 2021-02-12 10:50 | NUR ---
EARLIER DR PURI CALLED REQ I PLACE PT HOME MEDS IN AND GIVE ALSO I REQ PO MED FOR COUGH TESSALON SEBASTIEN AMD ADDITONAL TYLENOL FOR TEMP
--- NOTE | 2021-02-12 14:15 | NUR ---
PREOPED PT IN ROOM 211. History, Chart, Medications and Allergies reviewed before start of procedure. Lungs clear T/O to Auscultation. Patient confirms NPO status and agrees with scheduled surgery. Pre-Op teaching done. Pt verbalizes understanding.
--- NOTE | 2021-02-12 15:08 | NUR ---
02/12/21 1508 Basia Noriega BULLET REMOVED BY AND GIVEN TO OFFICER SOPHIE XIE.
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
--- NOTE | 2021-02-12 18:30 | NUR ---
MEDS GIVEN SCHED PT GIVEN RADHA AWAITING TRAY
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
--- NOTE | 2021-02-13 09:19 | NUR ---
PT WORKING WITH PHYSICAL THERAPY
[2021-02-13] MEDS ORDERED: ACET500 PO (11:58)
[2021-02-13] MEDS ORDERED: HYDR1TAB94 PO (12:04)
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
== END 2021-02-13 13:00 ==
LOC: ER 21:17 → SURS 21:18 → ER 21:18 → SURS 21:18
PROVIDERS: Emergency Medicine; ADMIT Orthopaedic Surgery
PROC: 0QDD0ZZ Extraction of Right Patella, Open Approach (ICD-10-PCS; 2021-02-12)
PROC: 0QDB0ZZ Extraction of Right Lower Femur, Open Approach (ICD-10-PCS; principal; 2021-02-12 14:15)
DX: S72.43 Fracture of medial condyle of femur (principal); S82.041B Displaced comminuted fracture of right patella, initial encounter for open fracture type I or II; Y35.003A Legal intervention involving unspecified firearm discharge, suspect injured, initial encounter; I10 Essential (primary) hypertension; F17.290 Nicotine dependence, other tobacco product, uncomplicated
CPT/HCPCS: 36415; 73560-RT; 73706; 80053; 85025; 85610; 85730; 90714; 93005; 93010; 97116; 97161; 97530; A9270; J0690; J1100; J1885; J2250; J2270; J2405; J2704; J2765; J2795; J3010; J7120; Q9967